=== PATIENT | male | born 1945 | race Caucasian/White ===

== ENCOUNTER 2018-05-29 09:32 | Inpatient (IN) ==
[2018-05-29] MEDS ORDERED: Morphine Inj 4 MG/ML Vial IV.PUSH ONE ×2 (10:06→12:57)
--- NOTE | 2018-05-29 10:08 | ED ---
HPI General Chief complaint: Abdominal Pain Stated complaint: Kidney pain x last Monday History of Present Illness HPI narrative: Patient 72-year-old male presents emergency department for evaluation of left flank pain. Patient states he has a history of kidney stones , end-stage renal disease, however he has stopped dialysis in 2013 his kidneys got a little better. Currently does not have any dialysis access. States that he has had have interventions for kidney stones before. No nausea no vomiting no diarrhea no constipation. States symptoms started about 5 days ago, intermittent but gradually worsening overall, not associate with any dysuria. He states he feels fairly severe at times but currently is only moderate. States it feels like any other kidney stones ever had. Related Data Home Medications Medication Instructions Recorded Confirmed atorvastatin [Lipitor] 40 mg PO HS 05/29/18 05/29/18 clopidogrel [Plavix] 75 mg PO DAILY 05/29/18 05/29/18 gabapentin 400 mg PO HS 05/29/18 05/29/18 hydrocodone-acetaminophen [Vicodin] 5 - 325 mg PO Q4-6H PRN 05/29/18 05/29/18 insulin aspart U-100 [Novolog 20 units SUB-Q AC 05/29/18 05/29/18 PenFill U-100 Insulin] insulin glargine [Lantus Solostar 40 unit SUB-Q HS 05/29/18 05/29/18 U-100 Insulin] isosorbide mononitrate mg PO 05/29/18 tamsulosin [Flomax] 0.4 mg PO DAILY 05/29/18 05/29/18 Allergies Allergy/AdvReac Type Severity Reaction Status Date / Time No Known Allergies Allergy Verified 05/29/18 09:46 Review of Systems ROS: all other systems reviewed are negative [facility] Medical History Medical History Chest pain (Acute) Coronary artery disease (Acute) Diabetes (Acute) High cholesterol (Acute) Kidney stones (Acute) Renal disease (Acute) Renal failure (Acute) Surgical History Surgical History Hx of CABG (Acute) Hx of cholecystectomy (Acute) Social History Social History Substance History: No History of Abuse Second Hand Smoke Exposure: No Smoking Status: Never smoker How Often Do You Have a Drink Containing Alcohol: Never Recent Travel in [facility] within the Last 8 Weeks: No Recent Out of Country Travel within the Last 8 Weeks: No Immunization History Tetanus Immunization: <5 Years Hx Influenza Vaccine This Season: Yes Exam Narrative Exam Narrative: GENERAL: Well-developed well-nourished pleasant male in minimal discomfort SKIN: Focused skin assessment warm/dry. HEAD: Atraumatic. Normocephalic. EYES: Pupils equal and round. No scleral icterus. No injection or drainage. ENT: No nasal bleeding or discharge. Mucous membranes pink and moist. NECK: Trachea midline. No JVD. CARDIOVASCULAR: Regular rate and rhythm. No murmur appreciated. RESPIRATORY: No accessory muscle use. Clear to auscultation. Breath sounds equal bilaterally. GASTROINTESTINAL: Abdomen soft, non-tender, nondistended. Hepatic and splenic margins not palpable. No CVA tenderness. MUSCULOSKELETAL: No obvious deformities. No clubbing. No cyanosis. No edema. NEUROLOGICAL: Awake and alert. No obvious cranial nerve deficits. Motor grossly within normal limits. Normal speech. PSYCHIATRIC: Appropriate mood and affect; insight and judgment normal. Course Initial Documented Vital Signs Temperature 98.9 F 05/29/18 09:42 Pulse Rate 87 05/29/18 09:42 Respiratory Rate 16 05/29/18 09:42 Blood Pressure 140/108 H 05/29/18 09:42 Pulse Oximetry 99 05/29/18 09:42 Last Documented Vital Signs Temperature 98.0 F 05/31/18 08:00 Pulse Rate 86 05/31/18 08:00 Respiratory Rate 18 05/31/18 08:00 Blood Pressure 174/81 H 05/31/18 08:00 Pulse Oximetry 96 05/31/18 08:00 Medical Decision Making [facility] Narrative Medical decision making narrative: Emergency department, appears fairly comfortable, Tudorza morphine 4 mg IV as well as Zofran IV given. Patient's CAT scan findings are notable for 3 obstructing kidney stones largest was 8.4 mm. He does have an acute kidney injury. He tells me that his baseline creatinine is usually about 3 and his creatinine is up to 5 today. Patient discussed with Dr. Diaz for admission, will also consult urology. Waiting for callback. Medical Screen Exam Complete: Yes Emergency Medical Condition: Yes Lab Data Result diagrams: 05/29/18 10:10 05/30/18 08:50 Lab Results 05/29/18 05/29/18 05/29/18 Range/Units 10:10 10:10 10:10 CBC w Diff Auto diff final WBC 8.5 (4.0-11.0) th/mm3 RBC 3.88 L (4.50-5.90) mil/mm3 Hgb 12.3 L (13.0-17.0) gm/dL Hct 35.9 L (39.0-51.0) % MCV 92.4 (80.0-100.0) fL MCH 31.7 (27.0-34.0) pg MCHC 34.3 (32.0-36.0) % RDW 13.1 (11.6-17.2) % Plt Count 133 L (150-450) th/mm3 MPV 8.5 (7.0-11.0) fL Neut % (Auto) 77.7 H (16.0-70.0) % Lymph % (Auto) 9.2 (9.0-44.0) % Luce % (Auto) 10.8 H (0.0-8.0) % Eos % (Auto) 1.7 (0.0-4.0) % Baso % (Auto) 0.6 (0.0-2.0) % Neut # (Auto) 6.6 (1.8-7.7) th/mm3 Lymph # (Auto) 0.8 L (1.0-4.8) th/mm3 Luce # (Auto) 0.9 (0.0-0.9) th/mm3 Eos # (Auto) 0.1 (0.0-0.4) th/mm3 Baso # (Auto) 0.1 (0.0-0.2) th/mm3 WBC Differential . Differential Comment . PT (9.8-11.6) sec INR Ratio Sodium 137 (136-145) meq/L Potassium 4.5 (3.5-5.1) meq/L Chloride 107 (98-107) meq/L Carbon Dioxide 20.8 L (21.0-32.0) meq/L Anion Gap 9 (5-15) meq/L BUN 56 H (7-18) mg/dL Creatinine 5.70 H (0.60-1.30) mg/dL Estimated GFR 10 L (>89) mL/min POC Glucose (68-110) mg/dl Random Glucose 142 H (74-106) mg/dL Calcium 9.0 (8.5-10.1) mg/dL Total Bilirubin 2.0 H (0.2-1.0) mg/dL AST 26 (15-37) U/L ALT 47 (12-78) U/L Alkaline Phosphatase 94 (45-117) U/L Total Protein 7.5 (6.4-8.2) g/dL Albumin 3.2 L (3.4-5.0) g/dL Lipase 115 (73-393) U/L Ur Collection Type Clean catch Urine Color Yellow (Yellw/Straw) Urine Clarity Clear (Clear) Urine pH 6.0 (5.0-8.5) Ur Specific Whit[place]orn 1.025 (1.002-1.035) Urine Protein 100 H (Neg-Trace) mg/dL Urine Glucose (UA) 100 H (Negative) mg/dL Urine Ketones Negative (Negative) mg/dL Urine Occult Blood Small H (Negative) Urine Nitrate Negative (Negative) Urine Bilirubin Negative (Negative) Urine Urobilinogen 0.2 (Less than 2) mg/dL Ur Leukocyte Esterase Negative (Negative) Urine RBC 0-3 (0-3) /hpf Urine WBC 0-5 (0-5) /hpf Ur Squamous Epith Cells 0-5 (0-5) /hpf Micro UA Comment Culture not ind Ur Microscopic Review Microscopic reviewed Urine Culture Comments Culture not ind Blood Type Bld Prod Order Comment 05/29/18 05/29/18 05/30/18 Range/Units 16:46 20:43 07:38 CBC w Diff WBC (4.0-11.0) th/mm3 RBC (4.50-5.90) mil/mm3 Hgb (13.0-17.0) gm/dL Hct (39.0-51.0) % MCV (80.0-100.0) fL MCH (27.0-34.0) pg MCHC (32.0-36.0) % RDW (11.6-17.2) % Plt Count (150-450) th/mm3 MPV (7.0-11.0) fL Neut % (Auto) (16.0-70.0) % Lymph % (Auto) (9.0-44.0) % Luce % (Auto) (0.0-8.0) % Eos % (Auto) (0.0-4.0) % Baso % (Auto) (0.0-2.0) % Neut # (Auto) (1.8-7.7) th/mm3 Lymph # (Auto) (1.0-4.8) th/mm3 Luce # (Auto) (0.0-0.9) th/mm3 Eos # (Auto) (0.0-0.4) th/mm3 Baso # (Auto) (0.0-0.2) th/mm3 WBC Differential Differential Comment PT (9.8-11.6) sec INR Ratio Sodium (136-145) meq/L Potassium (3.5-5.1) meq/L Chloride (98-107) meq/L Carbon Dioxide (21.0-32.0) meq/L Anion Gap (5-15) meq/L BUN (7-18) mg/dL Creatinine (0.60-1.30) mg/dL Estimated GFR (>89) mL/min POC Glucose 105 148 H 173 H (68-110) mg/dl Random Glucose (74-106) mg/dL Calcium (8.5-10.1) mg/dL Total Bilirubin (0.2-1.0) mg/dL AST (15-37) U/L ALT (12-78) U/L Alkaline Phosphatase (45-117) U/L Total Protein (6.4-8.2) g/dL Albumin (3.4-5.0) g/dL Lipase (73-393) U/L Ur Collection Type Urine Color (Yellw/Straw) Urine Clarity (Clear) Urine pH (5.0-8.5) Ur Specific Whit[place]orn (1.002-1.035) Urine Protein (Neg-Trace) mg/dL Urine Glucose (UA) (Negative) mg/dL Urine Ketones (Negative) mg/dL Urine Occult Blood (Negative) Urine Nitrate (Negative) Urine Bilirubin (Negative) Urine Urobilinogen (Less than 2) mg/dL Ur Leukocyte Esterase (Negative) Urine RBC (0-3) /hpf Urine WBC (0-5) /hpf Ur Squamous Epith Cells (0-5) /hpf Micro UA Comment Ur Microscopic Review Urine Culture Comments Blood Type Bld Prod Order Comment 05/30/18 05/30/18 05/30/18 Range/Units 08:50 08:50 09:21 CBC w Diff WBC (4.0-11.0) th/mm3 RBC (4.50-5.90) mil/mm3 Hgb (13.0-17.0) gm/dL Hct (39.0-51.0) % MCV (80.0-100.0) fL MCH (27.0-34.0) pg MCHC (32.0-36.0) % RDW (11.6-17.2) % Plt Count (150-450) th/mm3 MPV (7.0-11.0) fL Neut % (Auto) (16.0-70.0) % Lymph % (Auto) (9.0-44.0) % Luce % (Auto) (0.0-8.0) % Eos % (Auto) (0.0-4.0) % Baso % (Auto) (0.0-2.0) % Neut # (Auto) (1.8-7.7) th/mm3 Lymph # (Auto) (1.0-4.8) th/mm3 Luce # (Auto) (0.0-0.9) th/mm3 Eos # (Auto) (0.0-0.4) th/mm3 Baso # (Auto) (0.0-0.2) th/mm3 WBC Differential Differential Comment PT 12.0 H (9.8-11.6) sec INR 1.2 Ratio Sodium 135 L (136-145) meq/L Potassium 4.8 (3.5-5.1) meq/L Chloride 107 (98-107) meq/L Carbon Dioxide 17.6 L (21.0-32.0) meq/L Anion Gap 10 (5-15) meq/L BUN 58 H (7-18) mg/dL Creatinine 5.20 H (0.60-1.30) mg/dL Estimated GFR 11 L (>89) mL/min POC Glucose 205 H (68-110) mg/dl Random Glucose 207 H (74-106) mg/dL Calcium 8.6 (8.5-10.1) mg/dL Total Bilirubin (0.2-1.0) mg/dL AST (15-37) U/L ALT (12-78) U/L Alkaline Phosphatase (45-117) U/L Total Protein (6.4-8.2) g/dL Albumin (3.4-5.0) g/dL Lipase (73-393) U/L Ur Collection Type Urine Color (Yellw/Straw) Urine Clarity (Clear) Urine pH (5.0-8.5) Ur Specific Whit[place]orn (1.002-1.035) Urine Protein (Neg-Trace) mg/dL Urine Glucose (UA) (Negative) mg/dL Urine Ketones (Negative) mg/dL Urine Occult Blood (Negative) Urine Nitrate (Negative) Urine Bilirubin (Negative) Urine Urobilinogen (Less than 2) mg/dL Ur Leukocyte Esterase (Negative) Urine RBC (0-3) /hpf Urine WBC (0-5) /hpf Ur Squamous Epith Cells (0-5) /hpf Micro UA Comment Ur Microscopic Review Urine Culture Comments Blood Type Bld Prod Order Comment 05/30/18 05/30/18 05/30/18 Range/Units 12:35 18:04 21:05 CBC w Diff WBC (4.0-11.0) th/mm3 RBC (4.50-5.90) mil/mm3 Hgb (13.0-17.0) gm/dL Hct (39.0-51.0) % MCV (80.0-100.0) fL MCH (27.0-34.0) pg MCHC (32.0-36.0) % RDW (11.6-17.2) % Plt Count (150-450) th/mm3 MPV (7.0-11.0) fL Neut % (Auto) (16.0-70.0) % Lymph % (Auto) (9.0-44.0) % Luce % (Auto) (0.0-8.0) % Eos % (Auto) (0.0-4.0) % Baso % (Auto) (0.0-2.0) % Neut # (Auto) (1.8-7.7) th/mm3 Lymph # (Auto) (1.0-4.8) th/mm3 Luce # (Auto) (0.0-0.9) th/mm3 Eos # (Auto) (0.0-0.4) th/mm3 Baso # (Auto) (0.0-0.2) th/mm3 WBC Differential Differential Comment PT (9.8-11.6) sec INR Ratio Sodium (136-145) meq/L Potassium (3.5-5.1) meq/L Chloride (98-107) meq/L Carbon Dioxide (21.0-32.0) meq/L Anion Gap (5-15) meq/L BUN (7-18) mg/dL Creatinine (0.60-1.30) mg/dL Estimated GFR (>89) mL/min POC Glucose 190 H 169 H (68-110) mg/dl Random Glucose (74-106) mg/dL Calcium (8.5-10.1) mg/dL Total Bilirubin (0.2-1.0) mg/dL AST (15-37) U/L ALT (12-78) U/L Alkaline Phosphatase (45-117) U/L Total Protein (6.4-8.2) g/dL Albumin (3.4-5.0) g/dL Lipase (73-393) U/L Ur Collection Type Urine Color (Yellw/Straw) Urine Clarity (Clear) Urine pH (5.0-8.5) Ur Specific Whit[place]orn (1.002-1.035) Urine Protein (Neg-Trace) mg/dL Urine Glucose (UA) (Negative) mg/dL Urine Ketones (Negative) mg/dL Urine Occult Blood (Negative) Urine Nitrate (Negative) Urine Bilirubin (Negative) Urine Urobilinogen (Less than 2) mg/dL Ur Leukocyte Esterase (Negative) Urine RBC (0-3) /hpf Urine WBC (0-5) /hpf Ur Squamous Epith Cells (0-5) /hpf Micro UA Comment Ur Microscopic Review Urine Culture Comments Blood Type O Negative Bld Prod Order Comment 05/31/18 Range/Units 08:31 CBC w Diff WBC (4.0-11.0) th/mm3 RBC (4.50-5.90) mil/mm3 Hgb (13.0-17.0) gm/dL Hct (39.0-51.0) % MCV (80.0-100.0) fL MCH (27.0-34.0) pg MCHC (32.0-36.0) % RDW (11.6-17.2) % Plt Count (150-450) th/mm3 MPV (7.0-11.0) fL Neut % (Auto) (16.0-70.0) % Lymph % (Auto) (9.0-44.0) % Luce % (Auto) (0.0-8.0) % Eos % (Auto) (0.0-4.0) % Baso % (Auto) (0.0-2.0) % Neut # (Auto) (1.8-7.7) th/mm3 Lymph # (Auto) (1.0-4.8) th/mm3 Luce # (Auto) (0.0-0.9) th/mm3 Eos # (Auto) (0.0-0.4) th/mm3 Baso # (Auto) (0.0-0.2) th/mm3 WBC Differential Differential Comment PT (9.8-11.6) sec INR Ratio Sodium (136-145) meq/L Potassium (3.5-5.1) meq/L Chloride (98-107) meq/L Carbon Dioxide (21.0-32.0) meq/L Anion Gap (5-15) meq/L BUN (7-18) mg/dL Creatinine (0.60-1.30) mg/dL Estimated GFR (>89) mL/min POC Glucose 183 H (68-110) mg/dl Random Glucose (74-106) mg/dL Calcium (8.5-10.1) mg/dL Total Bilirubin (0.2-1.0) mg/dL AST (15-37) U/L ALT (12-78) U/L Alkaline Phosphatase (45-117) U/L Total Protein (6.4-8.2) g/dL Albumin (3.4-5.0) g/dL Lipase (73-393) U/L Ur Collection Type Urine Color (Yellw/Straw) Urine Clarity (Clear) Urine pH (5.0-8.5) Ur Specific Whit[place]orn (1.002-1.035) Urine Protein (Neg-Trace) mg/dL Urine Glucose (UA) (Negative) mg/dL Urine Ketones (Negative) mg/dL Urine Occult Blood (Negative) Urine Nitrate (Negative) Urine Bilirubin (Negative) Urine Urobilinogen (Less than 2) mg/dL Ur Leukocyte Esterase (Negative) Urine RBC (0-3) /hpf Urine WBC (0-5) /hpf Ur Squamous Epith Cells (0-5) /hpf Micro UA Comment Ur Microscopic Review Urine Culture Comments Blood Type Bld Prod Order Comment Imaging Data Radiologist's impression: Abdomen/Pelvis CT 05/29/18 10:05 CONCLUSION: 1. Severe left hydronephrosis and hydroureter secondary to 3 obstructing left mid ureteral calculi noted just lateral to the L5 vertebral body. Discharge Plan Discharge Disposition Patient Disposition: 30 Still Patient Discharge Details Diagnosis: Hydronephrosis, Hydroureter, Nephrolithiasis, JAREK (acute kidney injury) Physicians Team ED Provider: Aneudy Peters Primary Care Provider: [facility] Attending Provider: Ashvin Maldonado Other Providers: Evgeny Oliver Discharge Interventions Interventions: ED Discharge Assessment Last Done: 05/29/18 13:53 Status ED Status: Left Department Discharge Information Discharge Date/Time: 05/29/18 13:54
[2018-05-29 10:19] LABS: Bilirubin,Urine Negative (Negative); Clarity,Urine Clear (Clear); Color,Urine Yellow (Yellw/Straw); Glucose,Urine (UA) 100 mg/dL (Negative); Leukocyte Esterase,Urine Negative (Negative); Nitrite,Urine Negative (Negative); Specific Gravity,Urine 1.025 (1.002-1.035); Urobilinogen,Urine 0.2 mg/dL (Less than 2)
[2018-05-29 10:20] LABS: Baso # (Auto) 0.1 th/mm3 (0.0-0.2); Baso % (Auto) 0.6 % (0.0-2.0); Eos # (Auto) 0.1 th/mm3 (0.0-0.4); Eos % (Auto) 1.7 % (0.0-4.0); Hematocrit 35.9 % (39.0-51.0); Hemoglobin 12.3 gm/dL (13.0-17.0); Lymph # (Auto) 0.8 th/mm3 (1.0-4.8); Lymph % (Auto) 9.2 % (9.0-44.0); Mean Corpuscular HGB Conc 34.3 % (32.0-36.0); Mean Corpuscular Hemoglobin 31.7 pg (27.0-34.0); Mean Corpuscular Volume 92.4 fL (80.0-100.0); Mean Platelet Volume 8.5 fL (7.0-11.0); Mono # (Auto) 0.9 th/mm3 (0.0-0.9); Mono % (Auto) 10.8 % (0.0-8.0); Neut # (Auto) 6.6 th/mm3 (1.8-7.7); Neut % (Auto) 77.7 % (16.0-70.0); Platelet Count 133 th/mm3 (150-450); Red Blood Count 3.88 mil/mm3 (4.50-5.90); Red Cell Distribution Width 13.1 % (11.6-17.2); White Blood Count 8.5 th/mm3 (4.0-11.0)
[2018-05-29 10:23] LABS: RBC,Urine 0-3 /hpf (0-3); Squamous Epithelial Cell,Urine 0-5 /hpf (0-5); WBC,Urine 0-5 /hpf (0-5)
[2018-05-29 10:27] LABS: Chloride 107 meq/L (98-107); Potassium 4.5 meq/L (3.5-5.1); Sodium 137 meq/L (136-145)
[2018-05-29 10:30] LABS: Albumin 3.2 g/dL (3.4-5.0); Anion Gap 9 meq/L (5-15); Blood Urea Nitrogen 56 mg/dL (7-18); Carbon Dioxide 20.8 meq/L (21.0-32.0); Glucose,Random 142 mg/dL (74-106); Lipase 115 U/L (73-393)
[2018-05-29 10:33] LABS: Alanine Aminotransferase 47 U/L (12-78); Aspartate Aminotransferase 26 U/L (15-37); Glomerular Filtration Rate 10 mL/min (>89)
[2018-05-29 10:35] LABS: Total Protein 7.5 g/dL (6.4-8.2)
[2018-05-29 10:36] LABS: Alkaline Phosphatase 94 U/L (45-117)
--- NOTE | 2018-05-29 10:50 | CT ---
EXAM DATE: 05/29/2018 10:40 AM EDT AGE/SEX: 72 years / Male INDICATIONS: Left flank pain. CLINICAL DATA: This is the patient's initial encounter. Patient reports that signs and symptoms have been present for 4 - 6 days and indicates a pain score of 4/10. MEDICAL/SURGICAL HISTORY: Cardiovascular disease. Renal calculi. Diabetes. CABG. Cholecystec mitchell. RADIATION DOSE: 16.10 CTDI (mGy) COMPARISON: No prior exams available for comparison. TECHNIQUE: Multiple contiguous axial images were obtained through the abdomen. Images were obtained using multiple row detector helical technique. Using automated exposure control and adjustment of the mA and/or kV according to patient size, radiation dose was kept as low as reasonably achievable to o btain optimal diagnostic quality images. DICOM format image data is available electronically for rev iew and comparison. FINDINGS: Liver, spleen, pancreas, adrenal glands are unremarkable. Right kidney contains a small exophytic cys t off the lower pole measuring 1.1 cm. There is perinephric stranding, severe hydronephrosis and hydr oureter with periureteral stranding on the left. This is secondary to 3 calculi within the mid left u reter the largest measuring 8.4 mm on coronal image 56. There are no bladder calculi. There are vas d eferens calcifications and atherosclerotic calcification of the aorta and iliac vessels. Diverticulos is of the sigmoid colon is identified without evidence of diverticulitis. Lung bases are clear. Nunez us structures are intact. CONCLUSION: 1. Severe left hydronephrosis and hydroureter secondary to 3 obstructing left mid ureteral calculi n oted just lateral to the L5 vertebral body. Electronically signed by: Corey Carrasco MD 05/29/2018 10:48 AM EDT
[2018-05-29] MEDS ORDERED: Acetaminophen 325 MG Tablet PO PRN (12:58)
[2018-05-29] MEDS ORDERED: Bisacodyl 10 MG Supp RECTAL PRN (12:58)
[2018-05-29] MEDS: Sod Chloride 0.9% Inj 1,000 ML IV.CONT SCH ×2 (13:30→23:54)
[2018-05-29] MEDS ORDERED: Morphine Inj 4 MG/ML Vial IV.PUSH PRN (14:00)
[2018-05-29] MEDS: HYDROmorphone PF Inj 2 MG/ML Vial IV.PUSH PRN (17:54)
--- NOTE | 2018-05-29 17:56 | MB ---
cc: BenitoKunaln Haim DO DATE: 05/29/2018 HISTORY OF PRESENT ILLNESS: Mr. Trevino is a pleasant 72-year-old male who presented with left-sided flank pain with low-grade fevers at home. His CT scan upon admission in the emergency room showed a combination of 3 stones in the mid ureter causing obstruction measuring up to 8 mm in size with hydronephrosis on the left side. He does admit to history of stones in the past consisting of both uric acid and calcium oxalate. He has had bilateral percutaneous nephrostomy tubes placed in the past for percutaneous nephrolithotomies to treat his stones. He does have a history of renal failure and his baseline creatinine is in the 3 range and on presentation, it is 5.7. He does admit to being on dialysis approximately 4-5 years ago and then was able to get off of it. He does have a history of heart disease in the past and has undergone heart surgery. He denies any chest pain at the present time. PAST MEDICAL HISTORY: Includes heart disease, diabetes, high cholesterol, kidney stones, both calcium oxalate and uric acid, and chronic kidney disease with a history of renal failure requiring dialysis. PAST SURGICAL HISTORY: Noted for CABG, cholecystectomy, bilateral percutaneous nephrolithotomies for large stones. SOCIAL HISTORY: Denies drinking. Denies smoking. Denies using any drugs. REVIEW OF SYSTEMS: Notes left-sided flank pain. Denies chest pain. Does note a low-grade fever at home. Denies nausea or vomiting. Denies gait disturbances, bleeding disorders or psychiatric problems. The remaining review of systems were reviewed and were negative. PHYSICAL EXAMINATION: VITAL SIGNS: Temperature 98.8, heart rate 85, respiratory rate 18, blood pressure 195/93. GENERAL: He is a well-developed, well-nourished, 72-year-old male in no acute distress. HEENT: Normocephalic, atraumatic. Pupils equal, round, regular and reactive to light. Extraocular movements intact. NECK: Supple. HEART: Regular rate and rhythm. LUNGS: Clear. ABDOMEN: Soft, nontender, nondistended. GENITOURINARY: There is left CVA tenderness noted. Normal phallus. Testes descended. EXTREMITIES: Show no cyanosis, clubbing or edema. LABORATORY DATA: White count 8.5, hemoglobin 12.3, hematocrit 35.9, platelet count 133. Sodium 137, potassium 4.5, chloride 107, CO2 of 20.8, BUN 56, creatinine 5.7, glucose 142. Urinalysis shows 0-3 red cells, 0-5 white cells, nitrite is negative. CT scan shows severe left hydronephrosis and hydroureter secondary to 3 obstructing stones in the left mid ureter. ASSESSMENT AND PLAN: This is a 72-year-old male with acute on chronic renal failure with ureteral obstruction due to 3 stones in the left ureter. Recommend left percutaneous nephrostomy tube as stent placement may be difficult due to [address] causing obstruction. The patient will require internalization later during this admission or as an outpatient. In the future, he will need definitive treatment for his left ureteral stones, possibly with lithotripsy in the future. Continue pain management and IV fluids for now and IV antibiotics. We will follow with you. Thank you for the consult and allowing me to participate in the care of this patient. DO Shelley Steven , 05:16 PM , 05:26 PM
[2018-05-29] MEDS ORDERED: Dextrose 50% in Water 50 ML Vial IV.PUSH PRN (18:24)
--- NOTE | 2018-05-29 19:02 | P.HP ---
History of Present Illness Service: Hospitalist Primary Care Physician: [facility] Chief Complaint: Left flank pain History of Present Illness: Mr. Trevino is a pleasant fit 72-year-old male with a history of multiple kidney stones, stage V kidney disease who presents to the emergency department on 05/29/2018 due to left flank pain. Although he has chronic pain, this episode started about [address] abdomen shows severe left hydronephrosis and hydroureter secondary to 3 obstructing left mid ureteral calculi. Urology was consulted for further management. Patient denies any chest pain, shortness of breath, fever or chills. He denies any changes in bowel habits. Family history: Mother had heart disease. - Diagnosis (1) Hydronephrosis (2) Hydroureter (3) Nephrolithiasis Inpatient Certification: I certify that the inpatient services were ordered in accordance with Medicare regulations governing the order. This includes certification that hospital inpatient services are reasonable and necessary and in the case of services not specified as inpatient-only under 42 CFR 419.22(n), that they are appropriately provided as inpatient services in accordance to with the 2-midnight benchmark under 43 CFR 412.3(e) Estimated Total Length of Stay (Days): 3 Plans for Post Hospital Care: Home Review of Systems All other systems reviewed negative except as stated in HPI [facility] - History History Provided By: Patient - Medical History Medical History: Medical History (Last Updated 05/29/18 @ 09:56 by Starla Cruz RN) Chest pain Coronary artery disease Diabetes High cholesterol Kidney stones Renal disease Renal failure - Surgical History Surgical History: Surgical History (Last Updated 05/29/18 @ 09:56 by Starla Cruz RN) Hx of CABG Hx of cholecystectomy - Tobacco History Second Hand Smoke Exposure: No Tobacco Use In Past 30 Days: No Smoking Status: Never smoker - Alcohol History How Often Do You Have a Drink Containing Alcohol: Never - Substance Use History Substance History: No History of Abuse - Travel History Recent Travel in the [place] Within the Last 8 Weeks: No Recent Travel Out of the Country Within the Last 8 Weeks: No - Immunization History Tetanus Immunization: <5 Years Hx Influenza Vaccine This Season: Yes Medications and Allergies Active Medications: Active Medications Acetaminophen (Tylenol) 650 mg PO Q4H PRN PRN Reason: Headache,fever, pain 1-4 Al Hydroxide/Mg Hydroxide (Milk Of Magnesia Liq) 30 ml PO Q12H PRN PRN Reason: Mild Constipation Bisacodyl (Dulcolax Supp) 10 mg RECTAL DAILY PRN PRN Reason: SEVERE CONSITIPATION Clonidine HCl (Catapres) 0.1 mg PO Q6H PRN PRN Reason: For BP > 170/90 Dextrose (D50w Vial) 50 ml IV.PUSH UNSCH PRN PRN Reason: PER HYPOGLYCEMIA PROTOCOL Glucagon (Glucagon Inj) 1 mg OTHER PRN PRN PRN Reason: for Hypoglycemia Protocol Hydromorphone HCl (Dilaudid Pf Inj) 2 mg IV.PUSH Q3H PRN PRN Reason: PAIN SCALE 6 TO 10 Last Admin: 05/29/18 17:54 Dose: 2 mg Sodium Chloride (Ns Inj) 1,000 mls @ 100 mls/hr IV.CONT .Q10H LEXI Last Admin: 05/29/18 13:30 Dose: 100 mls/hr Insulin Aspart (Novolog Insulin Correctional Sugar Inj) 0 unit SQ ACHS LEXI; Protocol Lactulose (Lactulose Liq) 30 ml PO DAILY PRN PRN Reason: SEVERE CONSITIPATION Ondansetron HCl (Zofran Inj) 4 mg IV.PUSH Q6H PRN PRN Reason: NAUSEA OR VOMITING Sennosides (Senokot) 17.2 mg PO Q12H PRN PRN Reason: Moderate Constipation Sodium Chloride (Ns Flush) 2 ml IV.FLUSH PRN PRN PRN Reason: FLUSH AFTER USING IV ACCESS Allergies Allergy/AdvReac Type Severity Reaction Status Date / Time No Known Allergies Allergy Verified 05/29/18 09:46 Home Medications Medication Instructions Recorded Confirmed Type atorvastatin [Lipitor] 40 mg PO HS 05/29/18 05/29/18 History clopidogrel [Plavix] 75 mg PO DAILY 05/29/18 05/29/18 History gabapentin 400 mg PO HS 05/29/18 05/29/18 History hydrocodone-acetaminophen [Vicodin] 5 - 325 mg PO Q4-6H PRN 05/29/18 05/29/18 History insulin aspart U-100 [Novolog 20 units SUB-Q AC 05/29/18 05/29/18 History PenFill U-100 Insulin] insulin glargine [Lantus Solostar 40 unit SUB-Q HS 05/29/18 05/29/18 History U-100 Insulin] isosorbide mononitrate mg PO 05/29/18 History tamsulosin [Flomax] 0.4 mg PO DAILY 05/29/18 05/29/18 History Exam Vital signs: Vital Signs 05/29/18 09:42 05/29/18 10:43 05/29/18 11:40 Temperature 98.9 F Pulse Rate 87 83 Respiratory Rate 16 18 18 Blood Pressure 140/108 H 145/85 H Pulse Oximetry 99 97 05/29/18 13:27 05/29/18 13:33 05/29/18 16:00 Temperature 98.8 F Pulse Rate 86 85 Respiratory Rate 18 18 19 Blood Pressure 141/82 H 195/93 H Pulse Oximetry 96 99 05/29/18 18:00 Temperature Pulse Rate Respiratory Rate Blood Pressure 181/89 H Pulse Oximetry Intake & Output 05/28/18 05/29/18 05/29/18 18:59 06:59 18:59 Intake Total 0 / 0 Balance 0 / 0 Weight 90.7 kg Intake: Oral 0 / 0 Other: Weight On Admission 90.7 kg Narrative: GENERAL: This is a well-nourished, well-developed patient, in no apparent distress. SKIN: No rashes, ecchymoses or lesions. Warm and dry. HEAD: Atraumatic. Normocephalic. No temporal or scalp tenderness. EYES: Pupils equal round and reactive. No injection or drainage. ENT: Nose without bleeding, purulent drainage or septal hematoma. Airway patent. NECK: Trachea midline. No lymphadenopathy. Supple, nontender, no meningeal signs. CARDIOVASCULAR: Regular rate and rhythm without murmurs, gallops, or rubs. No JVD. RESPIRATORY: Clear to auscultation. Breath sounds equal bilaterally. No wheezes , rales, or rhonchi. GASTROINTESTINAL: Abdomen soft, non-tender, nondistended. No guarding. Significant left-sided CVA tenderness. MUSCULOSKELETAL: Extremities without clubbing, cyanosis, or edema. NEUROLOGICAL: Awake and alert. Cranial nerves II through XII intact. No focal neurological deficits. Normal speech. Results - Labs CBC & Chem 7: 05/29/18 10:10 05/29/18 10:10 Labs: Laboratory Results - last 24 hr 05/29/18 05/29/18 05/29/18 10:10 10:10 10:10 CBC w Diff Auto diff final WBC 8.5 RBC 3.88 L Hgb 12.3 L Hct 35.9 L MCV 92.4 MCH 31.7 MCHC 34.3 RDW 13.1 Plt Count 133 L MPV 8.5 Neut % (Auto) 77.7 H Lymph % (Auto) 9.2 [place] % (Auto) 10.8 H Eos % (Auto) 1.7 Baso % (Auto) 0.6 Neut # (Auto) 6.6 Lymph # (Auto) 0.8 L [place] # (Auto) 0.9 Eos # (Auto) 0.1 Baso # (Auto) 0.1 WBC Differential . Differential Comment . Sodium 137 Potassium 4.5 Chloride 107 Carbon Dioxide 20.8 L Anion Gap 9 BUN 56 H Creatinine 5.70 H Estimated GFR 10 L POC Glucose Random Glucose 142 H Calcium 9.0 Total Bilirubin 2.0 H AST 26 ALT 47 Alkaline Phosphatase 94 Total Protein 7.5 Albumin 3.2 L Lipase 115 Ur Collection Type Clean catch Urine Color Yellow Urine Clarity Clear Urine pH 6.0 Ur Specific [place] 1.025 Urine Protein 100 H Urine Glucose (UA) 100 H Urine Ketones Negative Urine Occult Blood Small H Urine Nitrate Negative Urine Bilirubin Negative Urine Urobilinogen 0.2 Ur Leukocyte Esterase Negative Urine RBC 0-3 Urine WBC 0-5 Ur Squamous Epith Cells 0-5 Micro UA Comment Culture not ind Ur Microscopic Review Microscopic reviewed Urine Culture Comments Culture not ind 05/29/18 16:46 CBC w Diff WBC RBC Hgb Hct MCV MCH MCHC RDW Plt Count MPV Neut % (Auto) Lymph % (Auto) [place] % (Auto) Eos % (Auto) Baso % (Auto) Neut # (Auto) Lymph # (Auto) [place] # (Auto) Eos # (Auto) Baso # (Auto) WBC Differential Differential Comment Sodium Potassium Chloride Carbon Dioxide Anion Gap BUN Creatinine Estimated GFR POC Glucose 105 Random Glucose Calcium Total Bilirubin AST ALT Alkaline Phosphatase Total Protein Albumin Lipase Ur Collection Type Urine Color Urine Clarity Urine pH Ur Specific [place] Urine Protein Urine Glucose (UA) Urine Ketones Urine Occult Blood Urine Nitrate Urine Bilirubin Urine Urobilinogen Ur Leukocyte Esterase Urine RBC Urine WBC Ur Squamous Epith Cells Micro UA Comment Ur Microscopic Review Urine Culture Comments - Imaging Impressions Abdomen/Pelvis CT 05/29/18 10:05 CONCLUSION: 1. Severe left hydronephrosis and hydroureter secondary to 3 obstructing left mid ureteral calculi noted just lateral to the L5 vertebral body. Caprini VTE Risk Assessment Caprini VTE Risk Assessment: No/Low Risk (score <= 1) Caprini Risk Assessment Model: Point Value = 1 Point Value = 2 Point Value = 3 Point Value = 5 Age 41-60 Minor surgery BMI > 25 kg/m2 Swollen legs Varicose veins or History of unexplained or recurrent spontaneous Oral contraceptives or hormone replacement Sepsis (< 1 month) Serious lung disease, including pneumonia (< 1 month) Abnormal pulmonary function Acute myocardial infarction Congestive heart failure (< 1 month) History of inflammatory bowel disease Medical patient at bed rest Age 61-74 Arthroscopic surgery Major open surgery (> 45 min) Laparoscopic surgery (> 45 min) Malignancy Confined to bed (> 72 hours) Immobilizing plaster cast Central venous access Age >= 75 History of VTE Family history of VTE Factor V Leiden Prothrombin [id number] Lupus anticoagulant Anticardiolipin antibodies Elevated serum homocysteine Heparin-induced thrombocytopenia Other congenital or acquired thrombophilia Stroke (< 1 month) Elective arthroplasty Hip, pelvis, or leg fracture Acute spinal cord injury (< 1 month) Prophylaxis Regimen: Total Risk Factor Score Risk Level Prophylaxis Regimen 0-1 Low Early ambulation 2 Moderate Order ONE of the following: *Sequential Compression Device (SCD) *Heparin 5000 units SQ BID 3-4 Higher Order ONE of the following medications: *Heparin 5000 units SQ TID *Enoxaparin/Lovenox 40 mg SQ daily (WT < 150 kg, CrCl > 30 mL/min) *Enoxaparin/Lovenox 30 mg SQ daily (WT < 150 kg, CrCl > 10-29 mL/min) *Enoxaparin/Lovenox 30 mg SQ BID (WT < 150 kg, CrCl > 30 mL/min) AND/OR *Sequential Compression Device (SCD) 5 or more Highest Order ONE of the following medications: *Heparin 5000 units SQ TID (Preferred with Epidurals) *Enoxaparin/Lovenox 40 mg SQ daily (WT < 150 kg, CrCl > 30 mL/min) *Enoxaparin/Lovenox 30 mg SQ daily (WT < 150 kg, CrCl > 10-29 mL/min) *Enoxaparin/Lovenox 30 mg SQ BID (WT < 150 kg, CrCl > 30 mL/min) AND *Sequential Compression Device (SCD) Assessment and Plan - Assessment (1) Hydronephrosis Code(s): N13.30 - Unspecified hydronephrosis Status: Acute (2) Hydroureter Code(s): N13.4 - Hydroureter Status: Acute (3) Nephrolithiasis Code(s): N20.0 - Calculus of kidney Status: Acute - Plan Mr. Trevino is a pleasant 72-year-old male with history of ESRD, nephrolithiasis who presents to the emergency department on 05/29/2018 due to left flank pain that started about 5 days ago. Patient was found to have 3 obstructing stones with severe left-sided hydroureter and hydronephrosis. Urology was consulted. He was also found to have creatinine 5.7 estimated GFR 10. Left-sided severe hydronephrosis Left-sided severe hydroureter Nephrolithiasis -Appreciate urology consult. Patient will likely undergo stent placement on 05/30/2018. -We will start patient on ciprofloxacin 400 mg IV every 12 hours. -Dilaudid 2 mg IV every 3 hours as needed for pain control. ESRD -Creatinine 5.70. Patient's baseline apparently is about 3.3. She -He used to be on dialysis but not anymore. Follows up with [place] workers compensation analyst. -We will monitor creatinine tomorrow. If no improvement, will consult nephrology here. Diabetes mellitus -We will continue sliding scale insulin for now. Patient's blood glucose in the low 100 range. Full code. SCDs.
[2018-05-29] MEDS: Insulin NovoLOG Aspart Correctional Sugar Inj SQ SCH (20:43)
[2018-05-29] MEDS: Ciprofloxacin 400 MG/200 ML 400 MG/200 ML PIGGYBACK IV.SIG SCH (20:45)
[2018-05-30] MEDS: HYDROmorphone PF Inj 2 MG/ML Vial IV.PUSH PRN ×3 (01:18→12:39)
[2018-05-30] MEDS: Ciprofloxacin 400 MG/200 ML 400 MG/200 ML PIGGYBACK IV.SIG SCH ×2 (07:33→22:09)
--- NOTE | 2018-05-30 08:53 | P.PN ---
Subjective Interval history: Follow-up for nephrolithiasis, left-sided hydronephrosis and hydroureter. Patient is currently doing well. Later on in the morning he became somewhat nauseated. Patient denied any chest pain, shortness of breath, fever or chills. Physical Exam Vital signs: Vital Signs 05/29/18 09:42 05/29/18 10:43 05/29/18 11:40 Temperature 98.9 F Pulse Rate 87 83 Respiratory Rate 16 18 18 Blood Pressure 140/108 H 145/85 H Pulse Oximetry 99 97 05/29/18 13:27 05/29/18 13:33 05/29/18 16:00 Temperature 98.8 F Pulse Rate 86 85 Respiratory Rate 18 18 19 Blood Pressure 141/82 H 195/93 H Pulse Oximetry 96 99 05/29/18 18:00 05/29/18 20:00 05/30/18 00:00 Temperature 97.4 F L 99.9 F H Pulse Rate 65 86 Respiratory Rate 18 18 Blood Pressure 181/89 H 107/67 160/88 H Pulse Oximetry 98 97 Intake & Output 05/29/18 05/30/18 05/30/18 18:59 06:59 18:59 Intake Total 0 / 0 1680 / 1680 Output Total 500 / 500 Balance 0 / 0 1180 / 1180 Weight 90.7 kg 90.7 kg Intake: IV 1200 / 1200 NS Inj 1,000 ML @ 100 mls/hr IV 1000 / 1000 .CONT .Q10H LEXI Rx#:[id number] Cipro 400 MG/200 ML Inj 400 mg 200 / 200 In 200 ml @ 200 mls/hr IV.SIG Q12H LEXI Rx#:[id number] Oral 0 / 0 480 / 480 Output: Urine 500 / 500 Other: Weight On Admission 90.7 kg Narrative: GENERAL: Alert, oriented 3, NAD. SKIN: Warm and dry. HEAD: Normocephalic. EYES: No scleral icterus. No injection or drainage. NECK: Supple, trachea midline. No JVD or lymphadenopathy. CARDIOVASCULAR: Regular rate and rhythm without murmurs, gallops, or rubs. RESPIRATORY: Breath sounds equal bilaterally. No accessory muscle use. GASTROINTESTINAL: Abdomen soft, non-tender, nondistended. Left-sided CVA tenderness. MUSCULOSKELETAL: No cyanosis, or edema. BACK: Nontender without obvious deformity. No CVA tenderness. Results - Labs CBC & Chem 7: 05/29/18 10:10 05/30/18 08:50 Laboratory Results - last 24 hr 05/29/18 05/29/18 05/29/18 10:10 10:10 10:10 CBC w Diff Auto diff final WBC 8.5 RBC 3.88 L Hgb 12.3 L Hct 35.9 L MCV 92.4 MCH 31.7 MCHC 34.3 RDW 13.1 Plt Count 133 L MPV 8.5 Neut % (Auto) 77.7 H Lymph % (Auto) 9.2 [place] % (Auto) 10.8 H Eos % (Auto) 1.7 Baso % (Auto) 0.6 Neut # (Auto) 6.6 Lymph # (Auto) 0.8 L [place] # (Auto) 0.9 Eos # (Auto) 0.1 Baso # (Auto) 0.1 WBC Differential . Differential Comment . Sodium 137 Potassium 4.5 Chloride 107 Carbon Dioxide 20.8 L Anion Gap 9 BUN 56 H Creatinine 5.70 H Estimated GFR 10 L POC Glucose Random Glucose 142 H Calcium 9.0 Total Bilirubin 2.0 H AST 26 ALT 47 Alkaline Phosphatase 94 Total Protein 7.5 Albumin 3.2 L Lipase 115 Ur Collection Type Clean catch Urine Color Yellow Urine Clarity Clear Urine pH 6.0 Ur Specific [place] 1.025 Urine Protein 100 H Urine Glucose (UA) 100 H Urine Ketones Negative Urine Occult Blood Small H Urine Nitrate Negative Urine Bilirubin Negative Urine Urobilinogen 0.2 Ur Leukocyte Esterase Negative Urine RBC 0-3 Urine WBC 0-5 Ur Squamous Epith Cells 0-5 Micro UA Comment Culture not ind Ur Microscopic Review Microscopic reviewed Urine Culture Comments Culture not ind 05/29/18 05/29/18 05/30/18 16:46 20:43 07:38 CBC w Diff WBC RBC Hgb Hct MCV MCH MCHC RDW Plt Count MPV Neut % (Auto) Lymph % (Auto) [place] % (Auto) Eos % (Auto) Baso % (Auto) Neut # (Auto) Lymph # (Auto) [place] # (Auto) Eos # (Auto) Baso # (Auto) WBC Differential Differential Comment Sodium Potassium Chloride Carbon Dioxide Anion Gap BUN Creatinine Estimated GFR POC Glucose 105 148 H 173 H Random Glucose Calcium Total Bilirubin AST ALT Alkaline Phosphatase Total Protein Albumin Lipase Ur Collection Type Urine Color Urine Clarity Urine pH Ur Specific [place] Urine Protein Urine Glucose (UA) Urine Ketones Urine Occult Blood Urine Nitrate Urine Bilirubin Urine Urobilinogen Ur Leukocyte Esterase Urine RBC Urine WBC Ur Squamous Epith Cells Micro UA Comment Ur Microscopic Review Urine Culture Comments - Imaging Impressions Abdomen/Pelvis CT 05/29/18 10:05 CONCLUSION: 1. Severe left hydronephrosis and hydroureter secondary to 3 obstructing left mid ureteral calculi noted just lateral to the L5 vertebral body. Assessment and Plan - Assessment (1) Hydronephrosis Code(s): N13.30 - Unspecified hydronephrosis Status: Acute (2) Hydroureter Code(s): N13.4 - Hydroureter Status: Acute (3) Nephrolithiasis Code(s): N20.0 - Calculus of kidney Status: Acute - Plan Mr. Trevino is a pleasant 72-year-old male with history of ESRD, nephrolithiasis who presents to the emergency department on 05/29/2018 due to left flank pain that started about 5 days ago. Patient was found to have 3 obstructing stones with severe left-sided hydroureter and hydronephrosis. Urology was consulted. He was also found to have creatinine 5.7 estimated GFR 10. Left-sided severe hydronephrosis Left-sided severe hydroureter Nephrolithiasis -Appreciate urology consult. Discussed with urology as well as interventional radiology. -Given possible complication, will transfer patient to the main hospital for IR directed nephrostomy tube placement. -Continue ciprofloxacin 400 mg IV every 12 hours. -Dilaudid 2 mg IV every 3 hours as needed for pain control. ESRD -Creatinine 5.70 --> 5.20. Patient's baseline apparently is about 3.3. -After nephrostomy tube placement, if creatinine does not improve, he might need a Nephrology eval. -He used to be on dialysis but not anymore. Follows up with [place] etymology teacher. Diabetes mellitus -We will continue sliding scale insulin for now. -Start Levemir 10 units QHS tonight. Full code. SCDs.
[2018-05-30 09:24] LABS: INR 1.2 Ratio
[2018-05-30 09:43] LABS: Potassium 4.8 meq/L (3.5-5.1)
[2018-05-30 09:46] LABS: Calcium 8.6 mg/dL (8.5-10.1); Carbon Dioxide 17.6 meq/L (21.0-32.0)
[2018-05-30] MEDS: Insulin NovoLOG Aspart Correctional Sugar Inj SQ SCH ×4 (10:55→21:17)
[2018-05-30] MEDS: Sod Chloride 0.9% Inj 1,000 ML IV.CONT SCH ×2 (10:58→22:09)
[2018-05-30] MEDS ORDERED: fentaNYL Citrate Inj 250 MCG/5 ML Ampul ONE (13:57)
[2018-05-30] MEDS ORDERED: Iohexol 300 MG/ML 50 ML Vial (for Rad Diag) IVCONTRAST ONE (14:47)
[2018-05-30] MEDS ORDERED: Iohexol 350 MG/ML 50 ML Vial (for Rad Diag) IVCONTRAST ONE (15:04)
[2018-05-30] MEDS ORDERED: Insulin Detemir Inj 1,000 UNIT/10 ML Vial SQ SCH (21:00)
[2018-05-31] MEDS: Sod Chloride 0.9% Inj 1,000 ML IV.CONT SCH ×3 (05:38→20:57)
[2018-05-31] MEDS: Insulin NovoLOG Aspart Correctional Sugar Inj SQ SCH ×4 (10:13→20:58)
[2018-05-31] MEDS: Ciprofloxacin 400 MG/200 ML 400 MG/200 ML PIGGYBACK IV.SIG SCH ×2 (10:14→20:48)
--- NOTE | 2018-05-31 15:18 | P.PNIM ---
Subjective Interval history: Patient is status post left nephrostomy tube placement. He is feeling better after the procedure. Some mild nausea remains. No other complaints. Physical Exam Vital signs: Vital Signs 05/30/18 15:30 05/30/18 16:00 05/30/18 16:30 Temperature Pulse Rate 74 75 73 Respiratory Rate 20 20 20 Blood Pressure 179/93 H 163/98 H 176/99 H Pulse Oximetry 94 L 92 L 95 05/30/18 17:00 05/30/18 20:00 05/31/18 00:00 Temperature 97.7 F 98.8 F Pulse Rate 76 81 87 Respiratory Rate 20 19 20 Blood Pressure 174/96 H 173/84 H 144/63 H Pulse Oximetry 94 L 99 98 05/31/18 04:00 05/31/18 08:00 05/31/18 12:00 Temperature 98.0 F 98.0 F 97.7 F Pulse Rate 81 86 80 Respiratory Rate 19 18 18 Blood Pressure 168/87 H 174/81 H 176/87 H Pulse Oximetry 97 96 94 L Intake & Output 05/30/18 05/31/18 05/31/18 18:59 06:59 18:59 Intake Total 1486 / 1486 2000 / 2000 1200 / 1200 Output Total 800 / 800 1100 / 1100 Balance 686 / 686 900 / 900 1200 / 1200 Weight 91.8 kg Intake: IV 1200 / 1200 1200 / 1200 1200 / 1200 NS Inj 1,000 ML @ 100 mls/hr IV 1000 / 1000 1000 / 1000 1000 / 1000 .CONT .Q10H LEXI Rx#:[id number] Cipro 400 MG/200 ML Inj 400 mg 200 / 200 200 / 200 200 / 200 In 200 ml @ 200 mls/hr IV.SIG Q12H LEXI Rx#:[id number] Oral 800 / 800 Intake (Blood Product) Amt 286 / 286 Plt Pheresis B Leukoreduced 286 / 286 Unit [id number] Output: Urine 700 / 700 Wound Drainage 100 / 100 1100 / 1100 # 1 Left Lower Posterior Back 100 / 100 1100 / 1100 Other: # Voids 1 Narrative: GENERAL: NAD, A&Ox3 HEAD: Normocephalic. NECK: Supple, trachea midline. No lymphadenopathy. EYES: No scleral icterus. No injection or drainage. CARDIOVASCULAR: Regular rate and rhythm without murmurs, gallops, or rubs. RESPIRATORY: Breath sounds equal bilaterally. No accessory muscle use. GASTROINTESTINAL: Abdomen soft, non-tender, nondistended. MUSCULOSKELETAL: No cyanosis, or edema. Left nephrostomy tube posteriorly. SKIN: Warm and dry. NEURO: No focal neurological deficits. Results - Labs CBC & Chem 7: 05/29/18 10:10 05/30/18 08:50 Laboratory Results - last 24 hr 05/30/18 05/30/18 05/31/18 18:04 21:05 08:31 POC Glucose 190 H 169 H 183 H 05/31/18 12:43 POC Glucose 214 H Assessment and Plan - Assessment (1) Hydronephrosis Code(s): N13.30 - Unspecified hydronephrosis Status: Acute (2) Hydroureter Code(s): N13.4 - Hydroureter Status: Acute (3) Nephrolithiasis Code(s): N20.0 - Calculus of kidney Status: Acute - Plan 72-year-old male admitted secondary to left urinary obstruction with left-sided hydroureter and hydronephrosis, with acute renal failure. Left-sided severe hydronephrosis Left-sided severe hydroureter Nephrolithiasis Nephrostomy tube placed 05/30/2018 Monitor renal function Continue Rocephin Continue pain treatments Acute renal failure on chronic kidney disease History of end-stage renal disease Baseline creatinine is 3.3 Continue to monitor potassium levels Diabetes mellitus type 2 Follow blood sugars Insulin sliding scale Diabetic diet Continue Levemir DVT prophylaxis SCDs
[2018-05-31 19:07] LABS: Calcium 8.7 mg/dL (8.5-10.1); Carbon Dioxide 15.3 meq/L (21.0-32.0); Potassium 4.6 meq/L (3.5-5.1)
--- NOTE | 2018-05-31 20:46 | P.PNURO ---
Subjective Patient symptoms today: Pt seen and examined. Feeling better. Objective Vital Signs: Vital Signs 05/31/18 00:00 05/31/18 04:00 05/31/18 08:00 Temperature 98.8 F 98.0 F 98.0 F Pulse Rate 87 81 86 Respiratory Rate 20 19 18 Blood Pressure 144/63 H 168/87 H 174/81 H Pulse Oximetry 98 97 96 05/31/18 12:00 05/31/18 16:00 Temperature 97.7 F 97.2 F L Pulse Rate 80 76 Respiratory Rate 18 17 Blood Pressure 176/87 H 155/75 H Pulse Oximetry 94 L 95 Intake & Output 05/31/18 05/31/18 06/01/18 06:59 18:59 06:59 Intake Total 2000 / 2000 1200 / 1200 Output Total 1100 / 1100 850 / 850 Balance 900 / 900 1200 / 1200 -850 / -850 Weight 91.8 kg Intake: IV 1200 / 1200 1200 / 1200 NS Inj 1,000 ML @ 100 mls/hr IV 1000 / 1000 1000 / 1000 .CONT .Q10H LEXI Rx#:[id number] Cipro 400 MG/200 ML Inj 400 mg 200 / 200 200 / 200 In 200 ml @ 200 mls/hr IV.SIG Q12H LEXI Rx#:[id number] Oral 800 / 800 Output: Wound Drainage 1100 / 1100 850 / 850 # 1 Left Lower Posterior Back 1100 / 1100 850 / 850 Other: # Voids 1 Date of Last Bowel Movement 05/28/18 Result Diagrams: 05/29/18 10:10 05/31/18 18:22 Medications and IVs: Active Medications Generic Name Dose Route Start Last Admin Trade Name Freq PRN Reason Stop Dose Admin Acetaminophen 650 mg 05/29/18 12:58 Tylenol PO Q4H PRN Headache,fever, pain 1-4 Hydrocodone Bitart/Acetaminophen 1 tab 05/31/18 13:45 [place] 5/325 PO Q4H PRN Pain 3 to 10 Al Hydroxide/Mg Hydroxide 30 ml 05/29/18 12:58 Milk Of Magnesia Liq PO Q12H PRN Mild Constipation Atorvastatin Calcium 40 mg 05/31/18 21:00 Lipitor PO HS LEXI Bisacodyl 10 mg 05/29/18 12:58 Dulcolax Supp RECTAL DAILY PRN SEVERE CONSITIPATION Clonidine HCl 0.1 mg 05/29/18 18:25 05/29/18 18:48 Catapres PO 0.1 mg Q6H PRN Administration For BP > 170/90 Clonidine HCl 0.1 mg 05/31/18 09:30 05/31/18 15:19 Catapres PO 0.1 mg Q6H PRN Administration SYS BP GREATER THAN 160 MMHG Clopidogrel Bisulfate 75 mg 06/01/18 09:00 Plavix PO DAILY LEXI Dextrose 50 ml 05/29/18 18:24 D50w Vial IV.PUSH UNSCH PRN PER HYPOGLYCEMIA PROTOCOL Gabapentin 400 mg 05/31/18 21:00 Neurontin PO HS LEXI Glucagon 1 mg 05/29/18 18:24 Glucagon Inj OTHER PRN PRN for Hypoglycemia Protocol Sodium Chloride 1,000 mls @ 100 mls/hr 05/29/18 13:00 05/31/18 10:14 Ns Inj IV.CONT 100 mls/hr .Q10H LEXI Administration Ciprofloxacin/Dextrose 400 mg in 200 mls @ 200 mls/hr 05/29/18 20:00 11:52 Cipro 400 Mg/200 Ml Inj IV.SIG Infused Q12H LEXI Infusion Insulin Aspart 0 unit 05/29/18 21:00 05/31/18 17:41 Novolog Insulin Correctional Sugar Inj SQ 3 unit ACHS LEXI Administration Protocol Insulin Detemir 25 unit 05/31/18 21:00 Levemir Inj SQ HS [facility] Isosorbide Mononitrate 10 mg 06/01/18 09:00 Ismo PO DAILY LEXI Lactulose 30 ml 05/29/18 12:58 Lactulose Liq PO DAILY PRN SEVERE CONSITIPATION Miscellaneous 1 each 05/31/18 15:47 Pill Splitter OTHER UNSCH PRN PILL SPLITTER Ondansetron HCl 4 mg 05/29/18 12:58 05/30/18 09:19 Zofran Inj IV.PUSH 4 mg Q6H PRN Administration NAUSEA OR VOMITING Sennosides 17.2 mg 05/29/18 12:58 Senokot PO Q12H PRN Moderate Constipation Sodium Chloride 2 ml 05/29/18 10:05 Ns Flush IV.FLUSH PRN PRN FLUSH AFTER USING IV ACCESS Tamsulosin HCl 0.4 mg 05/30/18 10:30 05/31/18 10:13 Flomax PO 0.4 mg DAILY LEXI Administration Objective Remarks: Abd:soft,nt,nd Left PCNT; urine blood tinged. Assessment and Plan - Plan 72 y.o male with 3 obstructing left ureteral stones with hydronephrosis and ARF on CRF For IR internalization with left JJ stent in AM NPO after MN
[2018-05-31] MEDS ORDERED: Insulin Detemir Inj 1,000 UNIT/10 ML Vial SQ SCH (21:00)
[2018-05-31] MEDS ORDERED: INSULIN GLARGINE 40 UNIT SQ SCH (21:00)
[2018-05-31] MEDS ORDERED: Gabapentin 100 MG Capsule PO SCH (21:00)
[2018-06-01] MEDS: Sod Chloride 0.9% Inj 1,000 ML IV.CONT SCH ×2 (02:54→10:40)
[2018-06-01 06:06] LABS: Hematocrit 36.1 % (39.0-51.0); Hemoglobin 12.4 gm/dL (13.0-17.0); Mean Corpuscular HGB Conc 34.3 % (32.0-36.0); Mean Corpuscular Hemoglobin 31.6 pg (27.0-34.0); Mean Corpuscular Volume 91.9 fL (80.0-100.0); Mean Platelet Volume 8.9 fL (7.0-11.0); Platelet Count 190 th/mm3 (150-450); Red Blood Count 3.93 mil/mm3 (4.50-5.90); Red Cell Distribution Width 12.8 % (11.6-17.2); White Blood Count 8.4 th/mm3 (4.0-11.0)
[2018-06-01 06:14] LABS: Albumin 2.7 g/dL (3.4-5.0); Anion Gap 12 meq/L (5-15); Aspartate Aminotransferase 36 U/L (15-37); Blood Urea Nitrogen 52 mg/dL (7-18); Calcium 8.6 mg/dL (8.5-10.1); Carbon Dioxide 17.9 meq/L (21.0-32.0); Chloride 113 meq/L (98-107); Glomerular Filtration Rate 14 mL/min (>89); Glucose,Random 134 mg/dL (74-106); Potassium 4.3 meq/L (3.5-5.1); Sodium 143 meq/L (136-145)
[2018-06-01 06:19] LABS: Alanine Aminotransferase 51 U/L (12-78); Alkaline Phosphatase 114 U/L (45-117); Total Protein 6.8 g/dL (6.4-8.2)
[2018-06-01 07:17] LABS: Eosinophils 3 % (0-4); Lymphocytes 18 % (9-44); Monocytes 7 % (0-8); Platelet Estimate Normal (Normal); RBC Morphology Normal (Normal)
[2018-06-01] MEDS: Ciprofloxacin 400 MG/200 ML 400 MG/200 ML PIGGYBACK IV.SIG SCH (08:38)
[2018-06-01] MEDS: Insulin NovoLOG Aspart Correctional Sugar Inj SQ SCH ×2 (08:40→12:15)
[2018-06-01] MEDS ORDERED: Isosorbide Mononitrate 20 MG Tablet PO SCH (09:00)
--- NOTE | 2018-06-01 10:02 | P.PNURO ---
Subjective Patient symptoms today: Pt seen and examined. Feels well. Objective Vital Signs: Vital Signs 05/31/18 12:00 05/31/18 16:00 05/31/18 20:00 Temperature 97.7 F 97.2 F L 97.8 F Pulse Rate 80 76 81 Respiratory Rate 18 17 17 Blood Pressure 176/87 H 155/75 H 168/81 H Pulse Oximetry 94 L 95 99 06/01/18 00:00 06/01/18 01:03 06/01/18 04:00 Temperature 98.1 F 97.9 F Pulse Rate 70 73 Respiratory Rate 17 18 17 Blood Pressure 150/65 H 146/66 H Pulse Oximetry 98 92 L 06/01/18 08:00 Temperature 97.6 F Pulse Rate 71 Respiratory Rate 18 Blood Pressure 164/76 H Pulse Oximetry 98 Intake & Output 05/31/18 06/01/18 06/01/18 18:59 06:59 18:59 Intake Total 1200 / 1200 1900 / 1900 1200 / 1200 Output Total 1500 / 1500 Balance 1200 / 1200 400 / 400 1200 / 1200 Weight 91.8 kg Intake: IV 1200 / 1200 1200 / 1200 1200 / 1200 NS Inj 1,000 ML @ 100 mls/hr IV 1000 / 1000 1000 / 1000 1000 / 1000 .CONT .Q10H LEXI Rx#:[id number] Cipro 400 MG/200 ML Inj 400 mg 200 / 200 200 / 200 200 / 200 In 200 ml @ 200 mls/hr IV.SIG Q12H LEXI Rx#:[id number] Oral 700 / 700 Output: Wound Drainage 1500 / 1500 # 1 Left Lower Posterior Back 1500 / 1500 Other: # Voids 2 Date of Last Bowel Movement 05/28/18 05/28/18 # Bowel Movements 1 Result Diagrams: 06/01/18 03:56 06/01/18 03:56 Medications and IVs: Active Medications Generic Name Dose Route Start Last Admin Trade Name Freq PRN Reason Stop Dose Admin Acetaminophen 650 mg 05/29/18 12:58 Tylenol PO Q4H PRN Headache,fever, pain 1-4 Hydrocodone Bitart/Acetaminophen 1 tab 05/31/18 13:45 06/01/18 08:37 [place] 5/325 PO 1 tab Q4H PRN Administration Pain 3 to 10 Al Hydroxide/Mg Hydroxide 30 ml 05/29/18 12:58 Milk Of Magnesia Liq PO Q12H PRN Mild Constipation Atorvastatin Calcium 40 mg 05/31/18 21:00 05/31/18 20:48 Lipitor PO 40 mg HS LEXI Administration Bisacodyl 10 mg 05/29/18 12:58 Dulcolax Supp RECTAL DAILY PRN SEVERE CONSITIPATION Clonidine HCl 0.1 mg 05/29/18 18:25 05/29/18 18:48 Catapres PO 0.1 mg Q6H PRN Administration For BP > 170/90 Clonidine HCl 0.1 mg 05/31/18 09:30 05/31/18 15:19 Catapres PO 0.1 mg Q6H PRN Administration SYS BP GREATER THAN 160 MMHG Clopidogrel Bisulfate 75 mg 06/01/18 09:00 06/01/18 08:43 Plavix PO Not Given DAILY LEXI Dextrose 50 ml 05/29/18 18:24 D50w Vial IV.PUSH UNSCH PRN PER HYPOGLYCEMIA PROTOCOL Gabapentin 400 mg 05/31/18 21:00 05/31/18 20:48 Neurontin PO 400 mg HS LEXI Administration Glucagon 1 mg 05/29/18 18:24 Glucagon Inj OTHER PRN PRN for Hypoglycemia Protocol Sodium Chloride 1,000 mls @ 100 mls/hr 05/29/18 13:00 06/01/18 08:21 Ns Inj IV.CONT Infused .Q10H LEXI Infusion Ciprofloxacin/Dextrose 400 mg in 200 mls @ 200 mls/hr 05/29/18 20:00 09:43 Cipro 400 Mg/200 Ml Inj IV.SIG Infused Q12H LEXI Infusion Insulin Aspart 0 unit 05/29/18 21:00 06/01/18 08:40 Novolog Insulin Correctional Sugar Inj SQ 1 unit ACHS LEXI Administration Protocol Insulin Detemir 25 unit 05/31/18 21:00 05/31/18 20:57 Levemir Inj SQ 25 unit HS LEXI Administration Isosorbide Mononitrate 10 mg 06/01/18 09:00 06/01/18 08:37 Ismo PO 10 mg DAILY LEXI Administration Lactulose 30 ml 05/29/18 12:58 Lactulose Liq PO DAILY PRN SEVERE CONSITIPATION Miscellaneous 1 each 05/31/18 15:47 Pill Splitter OTHER UNSCH PRN PILL SPLITTER Ondansetron HCl 4 mg 05/29/18 12:58 05/30/18 09:19 Zofran Inj IV.PUSH 4 mg Q6H PRN Administration NAUSEA OR VOMITING Sennosides 17.2 mg 05/29/18 12:58 Senokot PO Q12H PRN Moderate Constipation Sodium Chloride 2 ml 05/29/18 10:05 Ns Flush IV.FLUSH PRN PRN FLUSH AFTER USING IV ACCESS Tamsulosin HCl 0.4 mg 05/30/18 10:30 06/01/18 08:37 Flomax PO 0.4 mg DAILY LEXI Administration Objective Remarks: Abd:soft,nt,nd Left PCNT; urine blood tinged. 06/01 Abd:soft,nt,nd Left PCNT; urine blood tinged. Assessment and Plan - Plan 72 y.o male with 3 obstructing left ureteral stones with hydronephrosis and ARF on CRF For IR internalization with left JJ stent in AM NPO after MN 06/01 72 y.o male with 3 obstructing left ureteral stones with hydronephrosis and ARF on CRF For IR internalization with left JJ stent today F/U in a few weeks as outpt.
--- NOTE | 2018-06-01 16:19 | P.DCO ---
- Home Health Nursing Order: Medical education, Signs/symptoms of disease process, Wound care and dressing changes, Nursing assessment with vital signs Instructions: Dressing changes (topical covering) and evaluation of nephrostomy tube (left back) - Certification I have seen patient Radha Trevino on 06/01/18. My clinical findings support the need for the requested home health care services because: Limited mobility due to disease progression, Deconditioned with increased weakness, Infection with risk of complications I certify that my clinical findings support that this patient is homebound because: Unsafe to leave home unassisted, Unable to use public transportation
--- NOTE | 2018-06-01 16:23 | P.DS ---
Date of admission: 05/29/18 12:58 Primary care physician: [facility] Brief History from admission: Mr. Trevino is a pleasant fit 72-year-old male with a history of multiple kidney stones, stage V kidney disease who presents to the emergency department on 05/29/2018 due to left flank pain. Although he has chronic pain, this episode started about [address] abdomen shows severe left hydronephrosis and hydroureter secondary to 3 obstructing left mid ureteral calculi. Urology was consulted for further management. Patient denies any chest pain, shortness of breath, fever or chills. He denies any changes in bowel habits. Family history: Mother had heart disease. DS: Diagnosis - Discharge Diagnosis (1) Hydronephrosis Status: Acute (2) Hydroureter Status: Acute (3) Nephrolithiasis Status: Acute DS: Summary Hospital Course: Mr. Trevino is a 72-year-old male. He has a past history of chronic kidney disease. He came in with acute on chronic renal failure. Left-sided hydronephrosis with obstructive uropathy was present. A left-sided nephrostomy tube placed. His signs of acute kidney injury have improved since placement of the nephrostomy tube. Today he is having bilateral ureter stents placed and urology has cleared this patient for discharge after that. Patient wishes to discharge home after that. No further concerns for progressive acute kidney injury renal failure. He has improvement in his renal function since time of admit and is medically stable for discharge to home with outpatient follow-up. - Time Spent with Patient Total time spent providing and/or coordinating discharge services: Less than 30 minutes - Quality: VTE Deep Vein Thrombosis/Pulmonary Embolism Present on Admission: No Exam Vital signs: Vital Signs 05/31/18 20:00 06/01/18 00:00 06/01/18 01:03 Temperature 97.8 F 98.1 F Pulse Rate 81 70 Respiratory Rate 17 17 18 Blood Pressure 168/81 H 150/65 H Pulse Oximetry 99 98 06/01/18 04:00 06/01/18 08:00 06/01/18 12:00 Temperature 97.9 F 97.6 F 97.4 F L Pulse Rate 73 71 73 Respiratory Rate 17 18 16 Blood Pressure 146/66 H 164/76 H 132/65 Pulse Oximetry 92 L 98 99 Intake & Output 05/31/18 06/01/18 06/01/18 18:59 06:59 18:59 Intake Total 1200 / 1200 1900 / 1900 1200 / 1200 Output Total 1500 / 1500 200 / 200 Balance 1200 / 1200 400 / 400 1000 / 1000 Weight 91.8 kg Intake: IV 1200 / 1200 1200 / 1200 1200 / 1200 NS Inj 1,000 ML @ 100 mls/hr IV 1000 / 1000 1000 / 1000 1000 / 1000 .CONT .Q10H LEXI Rx#:[id number] Cipro 400 MG/200 ML Inj 400 mg 200 / 200 200 / 200 200 / 200 In 200 ml @ 200 mls/hr IV.SIG Q12H LEXI Rx#:[id number] Oral 700 / 700 Output: Wound Drainage 1500 / 1500 200 / 200 # 1 Left Lower Posterior Back 1500 / 1500 200 / 200 Other: # Voids 2 Date of Last Bowel Movement 05/28/18 05/28/18 05/28/18 # Bowel Movements 1 Results Procedures completed during hospitalization: Nephrostomy tube placement Bilateral Ureter Stenting Labs on day of discharge: Labs from last 24 hours 06/01/18 06/01/18 06/01/18 12:02 07:43 03:56 WBC RBC Hgb Hct MCV MCH MCHC RDW Plt Count MPV Prelim Diff (Auto) WBC Differential Seg Neuts % (Manual) Band Neuts % (Manual) Lymphocytes % (Manual) Monocytes % (Manual) Eosinophils % (Manual) Abs Neuts (Manual) Differential Comment Platelet Estimate Platelet Morphology RBC Morphology Sodium 143 Potassium 4.3 Chloride 113 H Carbon Dioxide 17.9 L Anion Gap 12 BUN 52 H Creatinine 4.19 H Estimated GFR 14 L POC Glucose 169 H 163 H Random Glucose 134 H Calcium 8.6 Total Bilirubin 0.8 AST 36 ALT 51 Alkaline Phosphatase 114 Total Protein 6.8 D Albumin 2.7 L 06/01/18 05/31/18 05/31/18 03:56 20:47 18:22 WBC 8.4 RBC 3.93 L Hgb 12.4 L Hct 36.1 L MCV 91.9 MCH 31.6 MCHC 34.3 RDW 12.8 Plt Count 190 D MPV 8.9 Prelim Diff (Auto) Manual diff required WBC Differential Manual diff final Seg Neuts % (Manual) 70 Band Neuts % (Manual) 2 Lymphocytes % (Manual) 18 Monocytes % (Manual) 7 Eosinophils % (Manual) 3 Abs Neuts (Manual) 6.0 Differential Comment . Platelet Estimate Normal Platelet Morphology Enlarged H RBC Morphology Normal Sodium 139 Potassium 4.6 Chloride 111 H Carbon Dioxide 15.3 L Anion Gap 13 BUN 48 H Creatinine 4.16 H Estimated GFR 14 L POC Glucose 177 H Random Glucose 160 H Calcium 8.7 Total Bilirubin AST ALT Alkaline Phosphatase Total Protein Albumin 05/31/18 17:04 WBC RBC Hgb Hct MCV MCH MCHC RDW Plt Count MPV Prelim Diff (Auto) WBC Differential Seg Neuts % (Manual) Band Neuts % (Manual) Lymphocytes % (Manual) Monocytes % (Manual) Eosinophils % (Manual) Abs Neuts (Manual) Differential Comment Platelet Estimate Platelet Morphology RBC Morphology Sodium Potassium Chloride Carbon Dioxide Anion Gap BUN Creatinine Estimated GFR POC Glucose 179 H Random Glucose Calcium Total Bilirubin AST ALT Alkaline Phosphatase Total Protein Albumin - Impressions ITS Impressions Abdomen/Pelvis CT 05/29/18 10:05 CONCLUSION: 1. Severe left hydronephrosis and hydroureter secondary to 3 obstructing left mid ureteral calculi noted just lateral to the L5 vertebral body. Discharge Plan - Discharge Disposition Patient Disposition: /Home Health Service - Discharge Condition Condition: Stable - Discharge Order Discharge Orders: Discharge Order (Routine); Ordered 06/01/18 Ordered By: Ashvin Maldonado - Discharge Details Anticipated Discharge Date: 06/01/18 Discharge Comment: January discharge after JJ stenting - Physicians Team Primary Care Provider: [facility] Attending Provider: Ashvin Maldonado Other Providers: Evgeny Oliver DO
--- NOTE | 2018-06-06 13:33 | IR ---
EXAM DATE: 05/30/2018 3:19 PM EDT AGE/SEX: 72 years / Male INDICATIONS: Patient presents with Hydronephrosis in need of Percutaneous Nephrostomy tube insertion . CLINICAL DATA: This is the patient's initial encounter. Patient reports that signs and symptoms have been present for 2 days and indicates a pain score of 4/10. MEDICAL/SURGICAL HISTORY: Diabetes. Nephrolithiasis, Hydroureter, CAD, Renal disease. CABG. Cholecystectomy. COMPARISON: [facility], URETERAL STENT [facility]T LT, 06/06/2018. . FLUORO TIME (min): 1.76 IMAGE SERIES: 3 SEDATION TIME (min): 30 CONTRAST (cc): 10 Omnipaque (iohexol) 350 MEDICATION(S): 100mcg fentanyl (Sublimaze) IV 2mg midazolam (Versed) IV DEVICE(S): 8 Persian nephrostomy catheter . . PROCEDURE : 1. Ultrasound-guided puncture of the kidney. 2. Antegrade percutaneous pyelogram. 3. Percutaneous nephrostomy placement. 4. Conscious sedation with continuous EKG and oximetry monitoring. The risks, benefits and alternatives to the procedure were explained and verbal and written consent w as obtained. The site was prepped in sterile fashion. Full sterile technique was used, including ca p, mask, sterile gloves and gown and a large sterile sheet. Hand hygiene and 2% chlorhexidine and/or betadine/alcohol prep was utilized per protocol for cutaneous antisepsis. Sterile gel and sterile probe cover were utilized for ultrasound guidance. The skin and subcutaneous tissues were infiltrate d with local anesthetic solution. With ultrasound and fluoroscopic guidance the selected kidney was punctured and a percutaneous antegr josemanuel pyelogram was performed demonstrating a dilated collecting system. Serial dilatation was perform ed and a prescribed nephrostomy tube was placed within the renal pelvis and sutured in place. Conscious sedation was performed with the prescribed dosages and duration as above in the presence of an independent trained radiology nurse to assist in the monitoring of the patient. EKG and oximetry remained stable throughout the procedure. The patient tolerated the procedure well and there were n o complications. The patient was sent to post anesthesia recovery in stable condition. CONCLUSION: 1. Uncomplicated nephrostomy tube placement as above. Electronically signed by: Scott Hancock MD 06/06/2018 1:32 PM EDT
== END 2018-06-01 17:27 | disposition home health service (06) ==
LOC: PHED 09:32 → PHEDA 12:58 → PH3 14:18 → HRIP 05-30 12:16 → N07 05-30 17:11
PROVIDERS: ADMIT Hospitalist; ATTEND Hospitalist

== ENCOUNTER 2018-09-25 18:18 | Inpatient (IN) ==
--- NOTE | 2018-09-25 19:04 | ED ---
HPI General Chief complaint: Diabetic Stated complaint: Diabetic Time Seen by Provider: 09/25/18 18:45 Source: patient and EMS Mode of arrival: EMS Limitations: altered mental status History of Present Illness HPI narrative: 72-year-old male was brought in by EMS after a hypoglycemic episode at home. Patient is diabetic and on insulin. Patient takes Lantus 20 units SQ 3 times a day with meals and 40 units at bedtime. Patient was at dinner today when he started having sweating, lethargy and confusion. Family members Accu-Chek his blood sugar and was between 27 and 35. EMS was called. Accu-Chek blood sugar by EMS was 34. Patient was given D10 bolus. Patient was transported to ED for evaluation. Upon arrival patient was reported back to be normal. Accu-Chek in the ED was 114-116. Onset (ago): minute(s) Severity: severe Associated symptoms: Reports confusion Treatments prior to arrival: Reports other (D10 IV push) Related Data Home Medications Medication Instructions Recorded Confirmed atorvastatin [Lipitor] 40 mg PO HS 05/29/18 09/25/18 clopidogrel [Plavix] 75 mg PO HS 05/29/18 09/25/18 gabapentin 400 mg PO HS 05/29/18 09/25/18 hydrocodone-acetaminophen [Vicodin] 5 - 325 mg PO Q4-6H PRN 05/29/18 09/25/18 tamsulosin [Flomax] 0.4 mg PO HS 05/29/18 09/25/18 allopurinol 100 mg PO HS 09/25/18 09/25/18 atenolol 12.5 mg PO HS 09/25/18 09/25/18 isosorbide mononitrate 120 mg PO BID 09/25/18 09/25/18 ranolazine 1,000 mg PO HS 09/25/18 09/25/18 ranolazine 500 mg PO DAILY 09/25/18 09/25/18 tetracycline 500 mg PO BID 09/25/18 09/25/18 venlafaxine 37.5 mg PO DAILY 09/25/18 09/25/18 Previous Rx's Medication Instructions Recorded insulin aspart U-100 [Novolog 15 unit SUB-Q AC #0 ml 09/26/18 PenFill U-100 Insulin] insulin glargine [Lantus Solostar 30 unit SUB-Q HS #0 ml 09/26/18 U-100 Insulin] Allergies Allergy/AdvReac Type Severity Reaction Status Date / Time No Known Allergies Allergy Verified 09/25/18 18:22 Review of Systems ROS: all other systems reviewed are negative [facility] Medical History Medical History Chest pain (Acute) Coronary artery disease (Acute) Diabetes (Acute) High cholesterol (Acute) Kidney stones (Acute) Renal disease (Acute) Renal failure (Acute) Surgical History Surgical History H/O nephrostomy (Acute) Hx of CABG (Acute) Hx of cholecystectomy (Acute) Family History Family History Other Family history non-contributory Social History Social History Substance History: No History of Abuse Second Hand Smoke Exposure: No Smoking Status: Never smoker How Often Do You Have a Drink Containing Alcohol: Never Recent Travel in [facility] within the Last 8 Weeks: No Recent Out of Country Travel within the Last 8 Weeks: No Immunization History Tetanus Immunization: <5 Years Exam Narrative Exam Narrative: GENERAL: Well-nourished, well-developed patient. SKIN: Focused skin assessment warm/dry. HEAD: Normocephalic. EYES: No scleral icterus. No injection or drainage. NECK: Supple, trachea midline. No JVD or lymphadenopathy. CARDIOVASCULAR: Regular rate and rhythm without murmurs, gallops, or rubs. RESPIRATORY: Breath sounds equal bilaterally. No accessory muscle use. GASTROINTESTINAL: Abdomen soft, non-tender, nondistended. MUSCULOSKELETAL: No cyanosis, or edema. BACK: Nontender without obvious deformity. No CVA tenderness. Neurologic exam normal Course Initial Documented Vital Signs Temperature 97.3 F L 09/25/18 18:19 Pulse Rate 92 H 09/25/18 18:19 Respiratory Rate 18 09/25/18 18:19 Blood Pressure 163/83 H 09/25/18 18:19 Pulse Oximetry 99 09/25/18 18:19 Last Documented Vital Signs Temperature 98.3 F 09/26/18 04:00 Pulse Rate 82 09/26/18 13:00 Respiratory Rate 21 09/26/18 13:00 Blood Pressure 171/80 H 09/26/18 13:00 Pulse Oximetry 99 12/26/18 13:00 Sign Out Sign Out Data: Patient Sign Out occurred on 09/25/18 at 19:18. Patient's care was discussed, and care was transferred from Galileo Collier to Jada Hooper MD. Sign Out Comment: Patient was hypoglycemic. Check blood sugar and discharge when stable. Last updated by Galileo Collier MD at 09/25/18 19:04 Medical Decision Making MDM Narrative Medical decision making narrative: 72-year-old male with hypoglycemic episode at home. Patient is diabetic on insulin. Patient will be given orange juice and meals and Accu-Chek every half an hour until stable and can be discharged. Accepted in transfer of care Patient identified to have elevated potassium as possible hemolyzed specimen metabolic panel was redrawn and resulted with elevated potassium greater than previously identified therefore treated with calcium gluconate D50 bolus with insulin and continuous D10 as well as sodium bicarb and Kayexalate. Patient's case discussed with medicine physician for admission Medical Screen Exam Complete: Yes Emergency Medical Condition: Yes Differential Diagnosis Differential Diagnosis: Differential diagnosis including hypoglycemia, electrode imbalance. Lab Data Result diagrams: 09/26/18 04:40 09/26/18 04:40 Lab Results 09/25/18 09/25/18 09/25/18 Range/Units 18:30 18:30 19:39 CBC w Diff Auto diff final WBC 9.3 (4.0-11.0) th/mm3 RBC 4.09 L (4.50-5.90) mil/mm3 Hgb 12.9 L (13.0-17.0) gm/dL Hct 38.2 L (39.0-51.0) % MCV 93.3 (80.0-100.0) fL MCH 31.6 (27.0-34.0) pg MCHC 33.9 (32.0-36.0) % RDW 12.7 (11.6-17.2) % Plt Count 101 L (150-450) th/mm3 MPV 8.7 (7.0-11.0) fL Neut % (Auto) 82.5 H (16.0-70.0) % Lymph % (Auto) 7.4 L (9.0-44.0) % Pershing % (Auto) 8.3 H (0.0-8.0) % Eos % (Auto) 1.4 (0.0-4.0) % Baso % (Auto) 0.4 (0.0-2.0) % Neut # (Auto) 7.7 (1.8-7.7) th/mm3 Lymph # (Auto) 0.7 L (1.0-4.8) th/mm3 Pershing # (Auto) 0.8 (0.0-0.9) th/mm3 Eos # (Auto) 0.1 (0.0-0.4) th/mm3 Baso # (Auto) 0.0 (0.0-0.2) th/mm3 WBC Differential . Diff Scan Differential Comment . Platelet Estimate (Normal) Platelet Morphology (Normal) RBC Morphology (Normal) Sodium 142 (136-145) meq/L Potassium 5.2 H (3.5-5.1) meq/L Chloride 109 H (98-107) meq/L Carbon Dioxide 24.3 (21.0-32.0) meq/L Anion Gap 9 (5-15) meq/L BUN 67 H (7-18) mg/dL Creatinine 3.90 H (0.60-1.30) mg/dL Estimated GFR 15 L (>89) mL/min POC Glucose 173 H (68-110) mg/dl Random Glucose 120 H (74-106) mg/dL Calcium 8.4 L (8.5-10.1) mg/dL Troponin I (0.02-0.05) ng/mL 09/25/18 09/25/18 09/25/18 Range/Units 20:44 20:44 20:44 CBC w Diff WBC (4.0-11.0) th/mm3 RBC (4.50-5.90) mil/mm3 Hgb (13.0-17.0) gm/dL Hct (39.0-51.0) % MCV (80.0-100.0) fL MCH (27.0-34.0) pg MCHC (32.0-36.0) % RDW (11.6-17.2) % Plt Count (150-450) th/mm3 MPV (7.0-11.0) fL Neut % (Auto) (16.0-70.0) % Lymph % (Auto) (9.0-44.0) % Pershing % (Auto) (0.0-8.0) % Eos % (Auto) (0.0-4.0) % Baso % (Auto) (0.0-2.0) % Neut # (Auto) (1.8-7.7) th/mm3 Lymph # (Auto) (1.0-4.8) th/mm3 Pershing # (Auto) (0.0-0.9) th/mm3 Eos # (Auto) (0.0-0.4) th/mm3 Baso # (Auto) (0.0-0.2) th/mm3 WBC Differential Diff Scan Differential Comment Platelet Estimate (Normal) Platelet Morphology (Normal) RBC Morphology (Normal) Sodium 142 (136-145) meq/L Potassium 5.9 H (3.5-5.1) meq/L Chloride 109 H (98-107) meq/L Carbon Dioxide 25.5 (21.0-32.0) meq/L Anion Gap 8 (5-15) meq/L BUN 72 H (7-18) mg/dL Creatinine 3.80 H (0.60-1.30) mg/dL Estimated GFR 16 L (>89) mL/min POC Glucose 99 (68-110) mg/dl Random Glucose 103 (74-106) mg/dL Calcium 8.4 L (8.5-10.1) mg/dL Troponin I Less than 0.02 L (0.02-0.05) ng/mL 09/25/18 09/25/18 09/25/18 Range/Units 21:50 21:55 22:49 CBC w Diff WBC (4.0-11.0) th/mm3 RBC (4.50-5.90) mil/mm3 Hgb (13.0-17.0) gm/dL Hct (39.0-51.0) % MCV (80.0-100.0) fL MCH (27.0-34.0) pg MCHC (32.0-36.0) % RDW (11.6-17.2) % Plt Count (150-450) th/mm3 MPV (7.0-11.0) fL Neut % (Auto) (16.0-70.0) % Lymph % (Auto) (9.0-44.0) % Pershing % (Auto) (0.0-8.0) % Eos % (Auto) (0.0-4.0) % Baso % (Auto) (0.0-2.0) % Neut # (Auto) (1.8-7.7) th/mm3 Lymph # (Auto) (1.0-4.8) th/mm3 Pershing # (Auto) (0.0-0.9) th/mm3 Eos # (Auto) (0.0-0.4) th/mm3 Baso # (Auto) (0.0-0.2) th/mm3 WBC Differential Diff Scan Differential Comment Platelet Estimate (Normal) Platelet Morphology (Normal) RBC Morphology (Normal) Sodium (136-145) meq/L Potassium (3.5-5.1) meq/L Chloride (98-107) meq/L Carbon Dioxide (21.0-32.0) meq/L Anion Gap (5-15) meq/L BUN (7-18) mg/dL Creatinine (0.60-1.30) mg/dL Estimated GFR (>89) mL/min POC Glucose 117 H 204 H (68-110) mg/dl Random Glucose 126 H (74-106) mg/dL Calcium (8.5-10.1) mg/dL Troponin I (0.02-0.05) ng/mL 09/26/18 09/26/18 09/26/18 Range/Units 00:15 01:16 02:58 CBC w Diff WBC (4.0-11.0) th/mm3 RBC (4.50-5.90) mil/mm3 Hgb (13.0-17.0) gm/dL Hct (39.0-51.0) % MCV (80.0-100.0) fL MCH (27.0-34.0) pg MCHC (32.0-36.0) % RDW (11.6-17.2) % Plt Count (150-450) th/mm3 MPV (7.0-11.0) fL Neut % (Auto) (16.0-70.0) % Lymph % (Auto) (9.0-44.0) % Pershing % (Auto) (0.0-8.0) % Eos % (Auto) (0.0-4.0) % Baso % (Auto) (0.0-2.0) % Neut # (Auto) (1.8-7.7) th/mm3 Lymph # (Auto) (1.0-4.8) th/mm3 Pershing # (Auto) (0.0-0.9) th/mm3 Eos # (Auto) (0.0-0.4) th/mm3 Baso # (Auto) (0.0-0.2) th/mm3 WBC Differential Diff Scan Differential Comment Platelet Estimate (Normal) Platelet Morphology (Normal) RBC Morphology (Normal) Sodium (136-145) meq/L Potassium (3.5-5.1) meq/L Chloride (98-107) meq/L Carbon Dioxide (21.0-32.0) meq/L Anion Gap (5-15) meq/L BUN (7-18) mg/dL Creatinine (0.60-1.30) mg/dL Estimated GFR (>89) mL/min POC Glucose 231 H 244 H 279 H (68-110) mg/dl Random Glucose (74-106) mg/dL Calcium (8.5-10.1) mg/dL Troponin I (0.02-0.05) ng/mL 09/26/18 09/26/18 09/26/18 Range/Units 04:11 04:40 04:40 CBC w Diff Slide review pending WBC 6.7 (4.0-11.0) th/mm3 RBC 3.83 L (4.50-5.90) mil/mm3 Hgb 11.8 L (13.0-17.0) gm/dL Hct 35.6 L (39.0-51.0) % MCV 93.1 (80.0-100.0) fL MCH 30.7 (27.0-34.0) pg MCHC 33.0 (32.0-36.0) % RDW 13.0 (11.6-17.2) % Plt Count 94 L (150-450) th/mm3 MPV 8.0 (7.0-11.0) fL Neut % (Auto) 73.1 H (16.0-70.0) % Lymph % (Auto) 16.6 (9.0-44.0) % Pershing % (Auto) 8.3 H (0.0-8.0) % Eos % (Auto) 1.7 (0.0-4.0) % Baso % (Auto) 0.3 (0.0-2.0) % Neut # (Auto) 4.8 (1.8-7.7) th/mm3 Lymph # (Auto) 1.1 (1.0-4.8) th/mm3 Pershing # (Auto) 0.6 (0.0-0.9) th/mm3 Eos # (Auto) 0.1 (0.0-0.4) th/mm3 Baso # (Auto) 0.0 (0.0-0.2) th/mm3 WBC Differential . Diff Scan Auto diff confirmed Differential Comment . Platelet Estimate Low L (Normal) Platelet Morphology Normal (Normal) RBC Morphology Normal (Normal) Sodium 139 (136-145) meq/L Potassium 5.1 D (3.5-5.1) meq/L Chloride 109 H (98-107) meq/L Carbon Dioxide 22.9 (21.0-32.0) meq/L Anion Gap 7 (5-15) meq/L BUN 68 H (7-18) mg/dL Creatinine 3.50 H (0.60-1.30) mg/dL Estimated GFR 17 L (>89) mL/min POC Glucose 286 H (68-110) mg/dl Random Glucose 278 H D (74-106) mg/dL Calcium 7.7 L (8.5-10.1) mg/dL Troponin I (0.02-0.05) ng/mL 09/26/18 09/26/18 09/26/18 Range/Units 05:32 06:44 07:38 CBC w Diff WBC (4.0-11.0) th/mm3 RBC (4.50-5.90) mil/mm3 Hgb (13.0-17.0) gm/dL Hct (39.0-51.0) % MCV (80.0-100.0) fL MCH (27.0-34.0) pg MCHC (32.0-36.0) % RDW (11.6-17.2) % Plt Count (150-450) th/mm3 MPV (7.0-11.0) fL Neut % (Auto) (16.0-70.0) % Lymph % (Auto) (9.0-44.0) % Pershing % (Auto) (0.0-8.0) % Eos % (Auto) (0.0-4.0) % Baso % (Auto) (0.0-2.0) % Neut # (Auto) (1.8-7.7) th/mm3 Lymph # (Auto) (1.0-4.8) th/mm3 Pershing # (Auto) (0.0-0.9) th/mm3 Eos # (Auto) (0.0-0.4) th/mm3 Baso # (Auto) (0.0-0.2) th/mm3 WBC Differential Diff Scan Differential Comment Platelet Estimate (Normal) Platelet Morphology (Normal) RBC Morphology (Normal) Sodium (136-145) meq/L Potassium (3.5-5.1) meq/L Chloride (98-107) meq/L Carbon Dioxide (21.0-32.0) meq/L Anion Gap (5-15) meq/L BUN (7-18) mg/dL Creatinine (0.60-1.30) mg/dL Estimated GFR (>89) mL/min POC Glucose 243 H 202 H 167 H (68-110) mg/dl Random Glucose (74-106) mg/dL Calcium (8.5-10.1) mg/dL Troponin I (0.02-0.05) ng/mL 09/26/18 09/26/18 09/26/18 Range/Units 09:05 10:01 12:34 CBC w Diff WBC (4.0-11.0) th/mm3 RBC (4.50-5.90) mil/mm3 Hgb (13.0-17.0) gm/dL Hct (39.0-51.0) % MCV (80.0-100.0) fL MCH (27.0-34.0) pg MCHC (32.0-36.0) % RDW (11.6-17.2) % Plt Count (150-450) th/mm3 MPV (7.0-11.0) fL Neut % (Auto) (16.0-70.0) % Lymph % (Auto) (9.0-44.0) % Pershing % (Auto) (0.0-8.0) % Eos % (Auto) (0.0-4.0) % Baso % (Auto) (0.0-2.0) % Neut # (Auto) (1.8-7.7) th/mm3 Lymph # (Auto) (1.0-4.8) th/mm3 Pershing # (Auto) (0.0-0.9) th/mm3 Eos # (Auto) (0.0-0.4) th/mm3 Baso # (Auto) (0.0-0.2) th/mm3 WBC Differential Diff Scan Differential Comment Platelet Estimate (Normal) Platelet Morphology (Normal) RBC Morphology (Normal) Sodium (136-145) meq/L Potassium (3.5-5.1) meq/L Chloride (98-107) meq/L Carbon Dioxide (21.0-32.0) meq/L Anion Gap (5-15) meq/L BUN (7-18) mg/dL Creatinine (0.60-1.30) mg/dL Estimated GFR (>89) mL/min POC Glucose 160 H 219 H 231 H (68-110) mg/dl Random Glucose (74-106) mg/dL Calcium (8.5-10.1) mg/dL Troponin I (0.02-0.05) ng/mL Discharge Plan Discharge Disposition Patient Disposition: ED Admit(ED Internal Use Only) Discharge Condition Condition: Stable Discharge Order Discharge Orders: Discharge Order (Routine); Ordered 09/26/18 Ordered By: Catalina Bradley ED Use Only Admit Order (Routine); Ordered 09/25/18 Ordered By: Jada Hooper Discharge Details Anticipated Discharge Date: 09/26/18 Diagnosis: Hyperkalemia, Renal failure, chronic, Hypoglycemia associated with diabetes Physicians Team ED Provider: Jada Hooper Primary Care Provider: UNKNOWN, Attending Provider: Jaycob Cam Status ED Status: Left Department Discharge Information Discharge Date/Time: 09/26/18 00:30
[2018-09-25 19:15] LABS: Baso % (Auto) 0.4 % (0.0-2.0); Eos # (Auto) 0.1 th/mm3 (0.0-0.4); Eos % (Auto) 1.4 % (0.0-4.0); Hematocrit 38.2 % (39.0-51.0); Hemoglobin 12.9 gm/dL (13.0-17.0); Lymph # (Auto) 0.7 th/mm3 (1.0-4.8); Lymph % (Auto) 7.4 % (9.0-44.0); Mean Corpuscular HGB Conc 33.9 % (32.0-36.0); Mean Corpuscular Hemoglobin 31.6 pg (27.0-34.0); Mean Corpuscular Volume 93.3 fL (80.0-100.0); Mean Platelet Volume 8.7 fL (7.0-11.0); Mono # (Auto) 0.8 th/mm3 (0.0-0.9); Mono % (Auto) 8.3 % (0.0-8.0); Neut # (Auto) 7.7 th/mm3 (1.8-7.7); Neut % (Auto) 82.5 % (16.0-70.0); Platelet Count 101 th/mm3 (150-450); Red Blood Count 4.09 mil/mm3 (4.50-5.90); Red Cell Distribution Width 12.7 % (11.6-17.2); White Blood Count 9.3 th/mm3 (4.0-11.0)
[2018-09-25 19:23] LABS: Potassium 5.2 meq/L (3.5-5.1)
[2018-09-25 19:25] LABS: Calcium 8.4 mg/dL (8.5-10.1)
[2018-09-25 19:26] LABS: Carbon Dioxide 24.3 meq/L (21.0-32.0)
[2018-09-25] MEDS ORDERED: Sodium Chlor 0.9% Inj 500 ML IV.SIG SCH (21:00)
[2018-09-25 21:05] LABS: Potassium 5.9 meq/L (3.5-5.1)
[2018-09-25 21:08] LABS: Calcium 8.4 mg/dL (8.5-10.1); Carbon Dioxide 25.5 meq/L (21.0-32.0)
[2018-09-25] MEDS ORDERED: Calcium Gluconate Inj 1 GM in Dextrose 5% in Water Inj 100 ML IV.SIG ONE ×2 (21:20)
[2018-09-25] MEDS ORDERED: Sodium Bicarbonate 8.4% Inj 50 MEQ/50 ML Syringe IV.PUSH ONE (21:20)
[2018-09-25] MEDS ORDERED: Sodium Polystyrene Sulfonate/Sorbitol Liq 15 GM/60 ML UDC PO ONE (21:20)
[2018-09-25] MEDS ORDERED: Dextrose 10% in Water Inj 1,000 ML IV.CONT SCH (21:30)
[2018-09-25] MEDS ORDERED: Bisacodyl 10 MG Supp RECTAL PRN (21:36)
[2018-09-25] MEDS ORDERED: Acetaminophen 325 MG Tablet PO PRN (21:36)
[2018-09-25] MEDS ORDERED: Dextrose 50% in Water 50 ML Vial IV.PUSH PRN (21:36)
[2018-09-26] MEDS: Heparin - SQ 10,000 UNITS/ML Vial SQ SCH ×2 (00:11→10:44)
[2018-09-26 04:30] VITALS: TEMP 98.3
[2018-09-26 05:01] LABS: Baso % (Auto) 0.3 % (0.0-2.0); Eos # (Auto) 0.1 th/mm3 (0.0-0.4); Eos % (Auto) 1.7 % (0.0-4.0); Hematocrit 35.6 % (39.0-51.0); Hemoglobin 11.8 gm/dL (13.0-17.0); Lymph # (Auto) 1.1 th/mm3 (1.0-4.8); Lymph % (Auto) 16.6 % (9.0-44.0); Mean Corpuscular Hemoglobin 30.7 pg (27.0-34.0); Mean Corpuscular Volume 93.1 fL (80.0-100.0); Mono # (Auto) 0.6 th/mm3 (0.0-0.9); Mono % (Auto) 8.3 % (0.0-8.0); Neut # (Auto) 4.8 th/mm3 (1.8-7.7); Neut % (Auto) 73.1 % (16.0-70.0); Platelet Count 94 th/mm3 (150-450); Red Blood Count 3.83 mil/mm3 (4.50-5.90); White Blood Count 6.7 th/mm3 (4.0-11.0)
[2018-09-26 05:20] LABS: Platelet Morphology Normal (Normal); RBC Morphology Normal (Normal)
[2018-09-26 05:21] LABS: Calcium 7.7 mg/dL (8.5-10.1); Carbon Dioxide 22.9 meq/L (21.0-32.0); Potassium 5.1 meq/L (3.5-5.1)
[2018-09-26] MEDS ORDERED: Venlafaxine XR 37.5 MG Capsule PO SCH (09:00)
[2018-09-26] MEDS ORDERED: Senna/Docusate Sodium 8.6/50 MG Tablet PO SCH (09:00)
--- NOTE | 2018-09-26 12:43 | P.HP ---
History of Present Illness Primary Care Physician: UNKNOWN Chief Complaint: Hypoglycemia History of Present Illness: This is a 72-year-old male patient with a known medical history of diabetes on insulin, hypertension, CAD with history of CABG, chronic renal disease stage IV who presented to the ED with hypoglycemia. Patient states he is well versed on his insulin regimen and usually takes his insulin 15 minutes prior to his meal, when yesterday his meal was late being done and it was roughly 30 minutes between taking his short acting insulin and eating. He arrived via EMS with a blood sugar of 34. Since presentation patient has been doing well with controlled trends. Eating well without any issues. Patient has been advised to see his PCP for possible adjustment of his insulin. He states that he has episodes of hypoglycemia roughly once a month. Denies any other complaints or recent illness including fever, chills, headache, chest pain, shortness of breath, ab pain, n/v/d or dysuria. Patient does follow with urology and has had a urethral stent placed in June, is on chronic tetracycline for prevention of UTI. Patient sees his PCP a the [facility]. Denies any new changes to his medications. Does have stage IV kidney disease, was on renal dialysis in 2012 for 6 months and has since been weaned off. - Diagnosis (1) Hypoglycemia associated with diabetes Inpatient Certification: I certify that the inpatient services were ordered in accordance with Medicare regulations governing the order. This includes certification that hospital inpatient services are reasonable and necessary and in the case of services not specified as inpatient-only under 42 CFR 419.22(n), that they are appropriately provided as inpatient services in accordance to with the 2-midnight benchmark under 43 CFR 412.3(e) Estimated Total Length of Stay (Days): 2 Plans for Post Hospital Care: Not yet determined Review of Systems All other systems reviewed negative except as stated in HPI PMFSH - History History Provided By: Patient - Medical History Medical History: Medical History (Last Reviewed 09/26/18 @ 12:43 by Catalina Bradley) Chest pain Coronary artery disease Diabetes High cholesterol Kidney stones Renal disease Renal failure - Surgical History Surgical History: Surgical History (Last Reviewed 09/26/18 @ 12:43 by Catalina Bradley) H/O nephrostomy (Acute) Hx of CABG Hx of cholecystectomy - Family History Family History: Family History (Last Updated 09/26/18 @ 13:03 by Catalina Bradley) Other Family history non-contributory - Social History I have reviewed the patient's Social History: Yes - Tobacco History Second Hand Smoke Exposure: No Smoking Status: Never smoker - Alcohol History How Often Do You Have a Drink Containing Alcohol: Never - Substance Use History Substance History: No History of Abuse - Travel History Recent Travel in the [place] Within the Last 8 Weeks: No Recent Travel Out of the Country Within the Last 8 Weeks: No - Immunization History Tetanus Immunization: <5 Years Hx Influenza Vaccine This Season: Yes Medications and Allergies Active Medications: Active Medications Acetaminophen (Tylenol) 650 mg PO Q4H PRN PRN Reason: Temp > 100.4 Al Hydroxide/Mg Hydroxide (Milk Of Magnesia Liq) 30 ml PO Q12H PRN PRN Reason: Mild Constipation Atenolol (Tenormin) 12.5 mg PO HS [facility] Atorvastatin Calcium (Lipitor) 40 mg PO HS [facility] Bisacodyl (Dulcolax Supp) 10 mg RECTAL DAILY PRN PRN Reason: SEVERE CONSITIPATION Clopidogrel Bisulfate (Plavix) 75 mg PO HS [facility] Dextrose (D50w Vial) 50 ml IV.PUSH UNSCH PRN PRN Reason: PER HYPOGLYCEMIA PROTOCOL Gabapentin (Neurontin) 400 mg PO HS [facility] Heparin Sodium (Porcine) (Heparin Inj) 5,000 units SQ Q12H [facility] Last Admin: 09/26/18 10:44 Dose: 5,000 units Lactulose (Lactulose Liq) 30 ml PO DAILY PRN PRN Reason: SEVERE CONSITIPATION Ondansetron HCl (Zofran Inj) 4 mg IV.PUSH Q6H PRN PRN Reason: NAUSEA OR VOMITING Senna/Docusate Sodium (Ashly-Colace) 1 tab PO BID [facility] Last Admin: 09/26/18 11:39 Dose: Not Given Sennosides (Senokot) 17.2 mg PO Q12H PRN PRN Reason: Moderate Constipation Sodium Chloride (Ns Flush) 2 ml IV.FLUSH BID [facility] Last Admin: 09/26/18 10:44 Dose: 2 ml Sodium Chloride (Ns Flush) 2 ml IV.FLUSH PRN PRN PRN Reason: FLUSH AFTER USING IV ACCESS Tamsulosin HCl (Flomax) 0.4 mg PO HS [facility] Venlafaxine HCl (Effexor Xr) 37.5 mg PO DAILY [facility] Last Admin: 09/26/18 10:44 Dose: 37.5 mg Allergies Allergy/AdvReac Type Severity Reaction Status Date / Time No Known Allergies Allergy Verified 09/25/18 18:22 Home Medications Medication Instructions Recorded Confirmed Type atorvastatin [Lipitor] 40 mg PO HS 05/29/18 09/25/18 History clopidogrel [Plavix] 75 mg PO HS 05/29/18 09/25/18 History gabapentin 400 mg PO HS 05/29/18 09/25/18 History hydrocodone-acetaminophen [Vicodin] 5 - 325 mg PO Q4-6H PRN 05/29/18 09/25/18 History insulin aspart U-100 [Novolog 20 units SUB-Q AC 05/29/18 09/25/18 History PenFill U-100 Insulin] insulin glargine [Lantus Solostar 40 unit SUB-Q HS 05/29/18 09/25/18 History U-100 Insulin] tamsulosin [Flomax] 0.4 mg PO HS 05/29/18 09/25/18 History allopurinol 100 mg PO HS 09/25/18 09/25/18 History atenolol 12.5 mg PO HS 09/25/18 09/25/18 History isosorbide mononitrate 120 mg PO BID 09/25/18 09/25/18 History ranolazine 1,000 mg PO HS 09/25/18 09/25/18 History ranolazine 500 mg PO DAILY 09/25/18 09/25/18 History tetracycline 500 mg PO BID 09/25/18 09/25/18 History venlafaxine 37.5 mg PO DAILY 09/25/18 09/25/18 History Exam Vital signs: Vital Signs 09/25/18 18:19 09/25/18 19:23 09/25/18 21:24 Temperature 97.3 F L Pulse Rate 92 H 78 92 H Respiratory Rate 18 18 16 Blood Pressure 163/83 H 149/78 H 142/83 H Pulse Oximetry 99 100 100 09/25/18 22:34 09/26/18 01:00 09/26/18 02:00 Temperature Pulse Rate 78 82 86 Respiratory Rate 16 18 18 Blood Pressure 140/65 177/89 H 144/81 H Pulse Oximetry 100 99 96 09/26/18 04:00 09/26/18 07:00 09/26/18 08:00 Temperature 98.3 F Pulse Rate 87 80 80 Respiratory Rate 18 17 22 Blood Pressure 162/81 H 160/90 H 167/88 H Pulse Oximetry 96 96 98 09/26/18 09:00 09/26/18 10:00 09/26/18 11:00 Temperature Pulse Rate 80 82 80 Respiratory Rate 17 26 H 16 Blood Pressure 154/89 H 168/92 H 159/90 H Pulse Oximetry 96 Intake & Output 09/25/18 09/26/18 09/26/18 18:59 06:59 18:59 Intake Total 710 / 710 Output Total 700 / 700 Balance Weight 91.172 kg 92.6 kg Intake: IV 610 / 610 Calcium Gluconate Inj 1 GM In 110 / 110 D5W Inj 100 ML @ 110 mls/hr IV. SIG ONCE ONE Rx#:[id number] NS Inj 500 ML @ 1000 mls/hr IV. 500 / 500 SIG BOLUS LEXI Rx#:[id number] Oral 100 / 100 Output: Urine 700 / 700 Other: Date of Last Bowel Movement 09/26/18 # Bowel Movements 1 Weight On Admission 92.6 kg - Constitutional no acute distress - Routine HEENT Exam Head: Present: normocephalic Eye: Present: EOMI, PERRL ENT: Present: mucous membranes moist - Routine Neck Exam Present: supple - Routine Cardiovascular Exam Present: RRR - Routine Abdominal Exam Present: soft - Routine Skin Exam Present: intact - Routine Neurological Exam Present: alert, oriented X3 Results - Labs CBC & Chem 7: 09/26/18 04:40 09/26/18 04:40 Labs: Laboratory Results - last 24 hr 09/25/18 09/25/18 09/25/18 18:30 18:30 19:39 CBC w Diff Auto diff final WBC 9.3 RBC 4.09 L Hgb 12.9 L Hct 38.2 L MCV 93.3 MCH 31.6 MCHC 33.9 RDW 12.7 Plt Count 101 L MPV 8.7 Neut % (Auto) 82.5 H Lymph % (Auto) 7.4 L Prentiss % (Auto) 8.3 H Eos % (Auto) 1.4 Baso % (Auto) 0.4 Neut # (Auto) 7.7 Lymph # (Auto) 0.7 L Prentiss # (Auto) 0.8 Eos # (Auto) 0.1 Baso # (Auto) 0.0 WBC Differential . Diff Scan Differential Comment . Platelet Estimate Platelet Morphology RBC Morphology Sodium 142 Potassium 5.2 H Chloride 109 H Carbon Dioxide 24.3 Anion Gap 9 BUN 67 H Creatinine 3.90 H Estimated GFR 15 L POC Glucose 173 H Random Glucose 120 H Calcium 8.4 L Troponin I 09/25/18 09/25/18 09/25/18 20:44 20:44 20:44 CBC w Diff WBC RBC Hgb Hct MCV MCH MCHC RDW Plt Count MPV Neut % (Auto) Lymph % (Auto) Prentiss % (Auto) Eos % (Auto) Baso % (Auto) Neut # (Auto) Lymph # (Auto) Prentiss # (Auto) Eos # (Auto) Baso # (Auto) WBC Differential Diff Scan Differential Comment Platelet Estimate Platelet Morphology RBC Morphology Sodium 142 Potassium 5.9 H Chloride 109 H Carbon Dioxide 25.5 Anion Gap 8 BUN 72 H Creatinine 3.80 H Estimated GFR 16 L POC Glucose 99 Random Glucose 103 Calcium 8.4 L Troponin I Less than 0.02 L 09/25/18 09/25/18 09/25/18 21:50 21:55 22:49 CBC w Diff WBC RBC Hgb Hct MCV MCH MCHC RDW Plt Count MPV Neut % (Auto) Lymph % (Auto) Prentiss % (Auto) Eos % (Auto) Baso % (Auto) Neut # (Auto) Lymph # (Auto) Prentiss # (Auto) Eos # (Auto) Baso # (Auto) WBC Differential Diff Scan Differential Comment Platelet Estimate Platelet Morphology RBC Morphology Sodium Potassium Chloride Carbon Dioxide Anion Gap BUN Creatinine Estimated GFR POC Glucose 117 H 204 H Random Glucose 126 H Calcium Troponin I 09/26/18 09/26/18 09/26/18 00:15 01:16 02:58 CBC w Diff WBC RBC Hgb Hct MCV MCH MCHC RDW Plt Count MPV Neut % (Auto) Lymph % (Auto) Prentiss % (Auto) Eos % (Auto) Baso % (Auto) Neut # (Auto) Lymph # (Auto) Prentiss # (Auto) Eos # (Auto) Baso # (Auto) WBC Differential Diff Scan Differential Comment Platelet Estimate Platelet Morphology RBC Morphology Sodium Potassium Chloride Carbon Dioxide Anion Gap BUN Creatinine Estimated GFR POC Glucose 231 H 244 H 279 H Random Glucose Calcium Troponin I 1209/26/18 09/26/18 04:11 04:40 04:40 CBC w Diff Slide review pending WBC 6.7 RBC 3.83 L Hgb 11.8 L Hct 35.6 L MCV 93.1 MCH 30.7 MCHC 33.0 RDW 13.0 Plt Count 94 L MPV 8.0 Neut % (Auto) 73.1 H Lymph % (Auto) 16.6 Prentiss % (Auto) 8.3 H Eos % (Auto) 1.7 Baso % (Auto) 0.3 Neut # (Auto) 4.8 Lymph # (Auto) 1.1 Prentiss # (Auto) 0.6 Eos # (Auto) 0.1 Baso # (Auto) 0.0 WBC Differential . Diff Scan Auto diff confirmed Differential Comment . Platelet Estimate Low L Platelet Morphology Normal RBC Morphology Normal Sodium 139 Potassium 5.1 D Chloride 109 H Carbon Dioxide 22.9 Anion Gap 7 BUN 68 H Creatinine 3.50 H Estimated GFR 17 L POC Glucose 286 H Random Glucose 278 H D Calcium 7.7 L Troponin I 09/26/18 09/26/18 09/26/18 05:32 06:44 07:38 CBC w Diff WBC RBC Hgb Hct MCV MCH MCHC RDW Plt Count MPV Neut % (Auto) Lymph % (Auto) Prentiss % (Auto) Eos % (Auto) Baso % (Auto) Neut # (Auto) Lymph # (Auto) Prentiss # (Auto) Eos # (Auto) Baso # (Auto) WBC Differential Diff Scan Differential Comment Platelet Estimate Platelet Morphology RBC Morphology Sodium Potassium Chloride Carbon Dioxide Anion Gap BUN Creatinine Estimated GFR POC Glucose 243 H 202 H 167 H Random Glucose Calcium Troponin I 09/26/18 09/26/18 09/26/18 09:05 10:01 12:34 CBC w Diff WBC RBC Hgb Hct MCV MCH MCHC RDW Plt Count MPV Neut % (Auto) Lymph % (Auto) Prentiss % (Auto) Eos % (Auto) Baso % (Auto) Neut # (Auto) Lymph # (Auto) Prentiss # (Auto) Eos # (Auto) Baso # (Auto) WBC Differential Diff Scan Differential Comment Platelet Estimate Platelet Morphology RBC Morphology Sodium Potassium Chloride Carbon Dioxide Anion Gap BUN Creatinine Estimated GFR POC Glucose 160 H 219 H 231 H Random Glucose Calcium Troponin I Caprini VTE Risk Assessment Caprini VTE Risk Assessment: Moderate/High Risk (score >= 2) Caprini Risk Assessment Model: Point Value = 1 Point Value = 2 Point Value = 3 Point Value = 5 Age 41-60 Minor surgery BMI > 25 kg/m2 Swollen legs Varicose veins or History of unexplained or recurrent spontaneous Oral contraceptives or hormone replacement Sepsis (< 1 month) Serious lung disease, including pneumonia (< 1 month) Abnormal pulmonary function Acute myocardial infarction Congestive heart failure (< 1 month) History of inflammatory bowel disease Medical patient at bed rest Age 61-74 Arthroscopic surgery Major open surgery (> 45 min) Laparoscopic surgery (> 45 min) Malignancy Confined to bed (> 72 hours) Immobilizing plaster cast Central venous access Age >= 75 History of VTE Family history of VTE Factor V Leiden Prothrombin [id number] Lupus anticoagulant Anticardiolipin antibodies Elevated serum homocysteine Heparin-induced thrombocytopenia Other congenital or acquired thrombophilia Stroke (< 1 month) Elective arthroplasty Hip, pelvis, or leg fracture Acute spinal cord injury (< 1 month) Prophylaxis Regimen: Total Risk Factor Score Risk Level Prophylaxis Regimen 0-1 Low Early ambulation 2 Moderate Order ONE of the following: *Sequential Compression Device (SCD) *Heparin 5000 units SQ BID 3-4 Higher Order ONE of the following medications: *Heparin 5000 units SQ TID *Enoxaparin/Lovenox 40 mg SQ daily (WT < 150 kg, CrCl > 30 mL/min) *Enoxaparin/Lovenox 30 mg SQ daily (WT < 150 kg, CrCl > 10-29 mL/min) *Enoxaparin/Lovenox 30 mg SQ BID (WT < 150 kg, CrCl > 30 mL/min) AND/OR *Sequential Compression Device (SCD) 5 or more Highest Order ONE of the following medications: *Heparin 5000 units SQ TID (Preferred with Epidurals) *Enoxaparin/Lovenox 40 mg SQ daily (WT < 150 kg, CrCl > 30 mL/min) *Enoxaparin/Lovenox 30 mg SQ daily (WT < 150 kg, CrCl > 10-29 mL/min) *Enoxaparin/Lovenox 30 mg SQ BID (WT < 150 kg, CrCl > 30 mL/min) AND *Sequential Compression Device (SCD) Assessment and Plan - Assessment (1) Hypoglycemia associated with diabetes Code(s): E11.649 - Type 2 diabetes mellitus with hypoglycemia without coma Status: Acute - Plan This is a 72-year-old male patient who presented to the ED with: Hypoglycemia History of diabetes on insulin therapy -Patient presented to the ED via EMS with a blood sugar of 34. -ACCU check ACHS overnight, trends are in the 200's now. Patient is eating well and has improved. -Hypoglycemia was secondary to patient taking his short acting insulin and not eating in time. -[facility] and has [facility] appointment to see next week. -Have decreased insulin dose at home and advised patient to check his blood sugars and keep a food diary for his PCP. -Patient is feeling much improved. Stable and ready to DC home. -Follow up PCP. Activity as tolerated. Diet as tolerated. RX as written. -Stable at this time and agreeable to the plan. Other medical problems include DM, CKD stage IV which are all stable. Continue home medications.
[2018-09-26] MEDS ORDERED: TETRACYCLINE 500 MG PO SCH (13:00)
[2018-09-26] MEDS ORDERED: Isosorbide Mononitrate 60 MG ER 24HR Tablet (Imdur) PO SCH (13:30)
[2018-09-26 13:31] VITALS: BP 171/80; PULSE 82; RESP 21; O2SAT 99
--- NOTE | 2018-09-26 18:37 | ECG ---
Date Performed: 09/25/2018 Time Performed: 20:40:56 PTAGE: 72 years EKG: Sinus rhythm WITH FIRST DEGREE AV BLOCK NONSPECIFIC T-WAVE ABNORMALITY ABNORMAL ECG NO PREVIOUS TRACING DOCTOR: Tawana Santos Interpretating Date/Time 09/26/2018 18:35:46
[2018-09-26] MEDS ORDERED: Atenolol 25 MG Tablet PO SCH (21:00)
[2018-09-26] MEDS ORDERED: Gabapentin 400 MG Capsule PO SCH (21:00)
== END 2018-09-26 14:50 | disposition home or self-care (01) | DRG 639 ==
LOC: PHED 18:18 → PHEDA 21:36 → PHICU 09-26 00:30
PROVIDERS: ADMIT Internal Medicine; ATTEND Internal Medicine
CPT/HCPCS: 80048; 82947; 82948; 82962; 84484; 85025; 90761; 90774; 90775; 93005; 96361; 96374; 96375; 99285; C8952; J0610; J1644; J1815; J7040